=== PATIENT | female | born 1955 | race Caucasian/White ===

== ENCOUNTER → 2020-10-07 09:09 | Outpatient (BNVA) | payer MEDICARE, MEDICAID, SELFPAY | PROVIDERS: PCP Internal Medicine; Visit Provider Surgery | DX: E66.09 Other obesity due to excess calories (principal); Z68.35 Body mass index [BMI] 35.0-35.9, adult; K91.2 Postsurgical malabsorption, not elsewhere classified; Z98.84 Bariatric surgery status; Z90.3 Acquired absence of stomach [part of] | CPT/HCPCS: 99212 ==

== ENCOUNTER → 2020-10-18 08:18 | Outpatient (BNVA) | payer MEDICARE, MEDICAID, SELFPAY | PROVIDERS: PCP Internal Medicine; Visit Provider Dietitian, Registered | DX: Z76.89 Persons encountering health services in other specified circumstances (principal) ==

== ENCOUNTER 2020-10-20 11:05 | Outpatient (REF) | payer MEDICARE, MEDICAID, SELFPAY ==
[2020-10-20 11:59] LABS: MANUAL DIFF FLAG NO
[2020-10-20 12:07] LABS: Basophils Percent Auto 0.4 % (0-2); Eosinophils Absolute Auto 0.1 X10*3/uL (0.0-0.4); Eosinophils Percent Auto 2.5 % (0-4); Hematocrit 45.5 % (37-47); Hemoglobin 14.8 g/dl (12.0-16.0); Imm Gran Abs Auto 0.02 X10*3/uL (0.00-0.03); Imm Gran Pct Auto 0.4 % (0.0-0.4); Lymphocytes Absolute Auto 1.3 X10*3/uL (1.2-4.9); Lymphocytes Percent Auto 22.4 % (20-40); Mean Corpuscular HGB Conc 32.5 g/dl (31.0-35.0); Mean Corpuscular Hemoglobin 31.4 pg (27.0-33.0); Mean Corpuscular Volume 96.4 fL (80-98); Mean Platelet Volume 9.6 fL (9.4-12.3); Monocytes Absolute Auto 0.4 X10*3/uL (0.1-1.2); Monocytes Percent Auto 7.7 % (2-11); Neutrophils Absolute Auto 3.7 X10*3/uL (2.0-8.3); Neutrophils Percent Auto 66.6 % (45-73); Platelet Count 230 X10*3/uL (160-400); Red Blood Count 4.72 X10*6/uL (4.20-5.50); Red Cell Distribution Width 13.4 % (11.0-16.0); White Blood Count 5.6 X10*3/uL (4.8-10.8)
[2020-10-20 12:40] LABS: Alanine Aminotransferase 22 U/L (0-31); Albumin Level 4.3 g/dL (3.5-5.0); Alkaline Phosphatase 71 U/L (39-117); Anion Gap 13 (12-20); Aspartate Amino Transferase 19 U/L (5-31); Bilirubin Total 0.6 mg/dL (0.0-1.0); Blood Urea Nitrogen 14 mg/dL (9-16); C Reactive Protein 0.31 mg/dL (< or = 0.50); Calcium 9.6 mg/dL (8.4-10.2); Carbon Dioxide 29 mmol/L (22-29); Chloride 108 mmol/L (96-108); Cholesterol 234 mg/dL; Estimated Glomerular Filt Rate > 60; Glucose Fasting 104 mg/dL (60-99); HDL Cholesterol 54 mg/dL; Iron 130 mcg/dL (30-160); LDL Cholesterol Calculated 155 mg/dl; Percent Iron Saturation 47 % (15-50); Potassium 4.1 mmol/l (3.3-5.1); Sodium 146 mmol/L (135-145); Total Iron Binding Capacity 279 mcg/dL (228-428); Total Protein 6.8 g/dL (6.5-8.0); Triglycerides 126 mg/dL; Unsaturated Iron Binding 149 ug/dL
[2020-10-20 13:01] LABS: Vitamin D 25-OH Total 32.7 ng/mL (>30)
[2020-10-20 13:22] LABS: Vitamin B12 1035 pg/mL (200-900)
[2020-10-23 07:12] LABS: Zinc 76 mcg/dL (60-130)
[2020-10-24 10:23] LABS: Vitamin B1 13 nmol/L (8-30)
[2020-10-26 18:12] LABS: Vitamin A 72 mcg/dL (38-98)
== END 2020-10-20 11:06 | disposition home or self-care (01) ==
LOC: HO.LAB 11:05
PROVIDERS: PCP Internal Medicine; Visit Provider Surgery
DX: Z01.818 Encounter for other preprocedural examination (principal); K91.2 Postsurgical malabsorption, not elsewhere classified; Z90.3 Acquired absence of stomach [part of]
CPT/HCPCS: 36415; 80053; 80061; 82306; 82607; 83540; 84425; 84443; 84590; 84630; 85025; 86140

== ENCOUNTER → 2020-11-17 08:11 | Outpatient (BNVA) | payer MEDICARE, MEDICAID, SELFPAY | PROVIDERS: PCP Internal Medicine; Visit Provider Physician Assistant | DX: K58.9 Irritable bowel syndrome, unspecified (principal); Z98.84 Bariatric surgery status | CPT/HCPCS: Q3014 ==

== ENCOUNTER → 2020-12-09 08:14 | Outpatient (BNVA) | payer MEDICARE, MEDICAID, SELFPAY | PROVIDERS: PCP Internal Medicine; Visit Provider Dietitian, Registered ==

== ENCOUNTER → 2020-12-31 08:12 | Outpatient (BNVA) | payer MEDICARE, MEDICAID, SELFPAY | PROVIDERS: PCP Internal Medicine; Visit Provider Physician Assistant | DX: E66.09 Other obesity due to excess calories (principal); Z68.35 Body mass index [BMI] 35.0-35.9, adult; Z98.84 Bariatric surgery status | CPT/HCPCS: Q3014 ==

== ENCOUNTER 2021-05-04 06:12 | Day surgery (SDC) | payer MEDICARE, MEDICAID, SELFPAY ==
--- NOTE | 2021-05-03 09:05 | HO.ANESPROP2 ---
Documented by User: Claudia Benites 05/03/21 09:07 HPI - Anesthesia Eval Consult details Narrative: 65yo F for Upper Endoscopy s/p gastric sleeve 2016 [facility] Active Problems Active Problems: All Active Problems (Updated 04/29/21 @ 11:52 by Gladis Garcia PA-C) Recent unexplained weight loss (Acute) Nausea & vomiting (Acute) S/P laparoscopic sleeve gastrectomy (Acute) IBS (irritable bowel syndrome) (Acute) Body mass index (BMI) of 35.0 to 35.9 in adult (Acute) Intestinal malabsorption following gastrectomy (Acute) Obesity (Acute) Past Medical History Medical History Anxiety Asthma Breast cancer History of kidney stones Hypercholesterolemia Hypertension Nausea & vomiting Obesity Recent unexplained weight loss Family History Family History Father Heart problem Mass Mother Breast cancer Heart problem Hypertension Depressed Sister No problems noted. Sister No problems noted. Brother Colon cancer Son Colitis ADHD Surgical History Surgical History History of left mastectomy History of repair of hiatal hernia History of right mastectomy History of total hysterectomy with bilateral salpingo-oophorectomy (BSO) S/P laparoscopic sleeve gastrectomy Social History Social History Alcohol intake: never Patient Tobacco Use Status: Never used Tobacco Use of substances other than those prescribed or required for medical reasons: Yes Substance Use Type: Marijuana Substance Use Frequency: Daily Are you DNR?: No Advance Directives: No Advance Directives Information Provided: Yes Meds Allergies Allergy/AdvReac Type Severity Reaction Status Date / Time naproxen [From ALEVE] Allergy Unknown UNK Verified 10/07/20 09:43 sulfamethoxazole Allergy Unknown UNK Verified 10/07/20 09:43 [From BACTRIM] trimethoprim [From BACTRIM] Allergy Unknown UNK Verified 10/07/20 09:43 aleve Allergy Unknown anaphylaxis Uncoded 10/07/20 09:43 bactrim Allergy Unknown escobar-benedict Uncoded 10/07/20 09:43 nsons Home Medications Medication Instructions Recorded Confirmed Last Taken Type albuterol sulfate 90 mcg/actuation INHALATION 10/07/20 12/31/20 Unknown History aerosol inhaler ammonium lactate 12 % topical cream 1 appl TOPICAL BID 10/07/20 12/31/20 Unknown History atorvastatin 40 mg tablet 40 mg PO DAILY 10/07/20 12/31/20 Unknown History cyanocobalamin (vitamin B-12) 1,000 mcg SUBLINGUAL DAILY 10/07/20 12/31/20 Unknown History 1,000 mcg sublingual tablet fluticasone propionate 50 INTRANASAL 10/07/20 12/31/20 Unknown History mcg/actuation nasal spray,suspension gabapentin 100 mg capsule 100 mg PO TID 10/07/20 12/31/20 Unknown History hydrochlorothiazide 25 mg tablet 25 mg PO DAILY 10/07/20 12/31/20 Unknown History lisinopril 40 mg tablet 40 mg PO DAILY 10/07/20 12/31/20 Unknown History montelukast 10 mg tablet 10 mg PO DAILY 10/07/20 12/31/20 Unknown History trazodone 50 mg tablet 50 mg PO BEDTIME 10/07/20 12/31/20 Unknown History venlafaxine 75 mg capsule,extended 75 mg PO DAILY 10/07/20 12/31/20 Unknown History release 24 hr calcium carbonate-vitamin D3 600 cap PO 11/17/20 12/31/20 Unknown History mg calcium-200 unit capsule multivitamin with minerals-folic tab PO 11/17/20 12/31/20 Unknown History acid 200 mcg chewable tablet Exam Exam Date and Time: May 03, 2021 0905 Assessment and Plan Assessment Anesthesia Assessment: Chart Reviewed Documented by User: Dinesh Owesn 05/04/21 07:19 [facility] Past Medical History Medical History Anxiety Asthma Breast cancer History of kidney stones Hypercholesterolemia Hypertension Nausea & vomiting Obesity Recent unexplained weight loss Family History Family History Father Heart problem Mass Mother Breast cancer Heart problem Hypertension Depressed Sister No problems noted. Sister No problems noted. Brother Colon cancer Son Colitis ADHD Surgical History Surgical History History of left mastectomy History of repair of hiatal hernia History of right mastectomy History of total hysterectomy with bilateral salpingo-oophorectomy (BSO) S/P laparoscopic sleeve gastrectomy Social History Social History Alcohol intake: never Patient Tobacco Use Status: Never used Tobacco Use of substances other than those prescribed or required for medical reasons: Yes Substance Use Type: Marijuana Substance Use Frequency: Daily Are you DNR?: No Advance Directives: No Advance Directives Information Provided: Yes Meds Allergies Allergy/AdvReac Type Severity Reaction Status Date / Time naproxen [From ALEVE] Allergy Unknown UNK Verified 10/07/20 09:43 sulfamethoxazole Allergy Unknown UNK Verified 10/07/20 09:43 [From BACTRIM] trimethoprim [From BACTRIM] Allergy Unknown UNK Verified 10/07/20 09:43 aleve Allergy Unknown anaphylaxis Uncoded 10/07/20 09:43 bactrim Allergy Unknown escobar-benedict Uncoded 10/07/20 09:43 nsons Home Medications Medication Instructions Recorded Confirmed Last Taken Type albuterol sulfate 90 mcg/actuation INHALATION 10/07/20 12/31/20 Unknown History aerosol inhaler ammonium lactate 12 % topical cream 1 appl TOPICAL BID 10/07/20 12/31/20 Unknown History atorvastatin 40 mg tablet 40 mg PO DAILY 10/07/20 12/31/20 Unknown History cyanocobalamin (vitamin B-12) 1,000 mcg SUBLINGUAL DAILY 10/07/20 12/31/20 Unknown History 1,000 mcg sublingual tablet fluticasone propionate 50 INTRANASAL 10/07/20 12/31/20 Unknown History mcg/actuation nasal spray,suspension gabapentin 100 mg capsule 100 mg PO TID 10/07/20 12/31/20 Unknown History hydrochlorothiazide 25 mg tablet 25 mg PO DAILY 10/07/20 12/31/20 Unknown History lisinopril 40 mg tablet 40 mg PO DAILY 10/07/20 12/31/20 Unknown History montelukast 10 mg tablet 10 mg PO DAILY 10/07/20 12/31/20 Unknown History trazodone 50 mg tablet 50 mg PO BEDTIME 10/07/20 12/31/20 Unknown History venlafaxine 75 mg capsule,extended 75 mg PO DAILY 10/07/20 12/31/20 Unknown History release 24 hr calcium carbonate-vitamin D3 600 cap PO 11/17/20 12/31/20 Unknown History mg calcium-200 unit capsule multivitamin with minerals-folic tab PO 11/17/20 12/31/20 Unknown History acid 200 mcg chewable tablet Exam Airway Mallampati Class: III TM Dist: >3cm Neck ROM: Full Loose/Missing/Broken Teeth: No Heart: [id number] Lungs: cta b/l Assessment and Plan Assessment Anesthesia Assessment: Anesthesia Plan Discussed, PAT Visit and Chart Reviewed Final Anesthetic Review NPO: Yes ASA Class: III Final Preanesthetic Review: No Changes in Pt Med Stat, Meds/Allgs Chart Reviewed, Consent Obtained/Reviewed and Anes Risks/Benef Reviewed Patient Risk: Intermediate Procedure Risk: Low Assessment/Block/Sedation in SS: Assess/Block/Sedation-SS Anesthetic Plan Anesthetic Plan: MAC: and Agree w/ Assess. and Plan Disposition: Standard PACU
--- NOTE | 2021-05-03 15:53 | MHC.SHP ---
Pre-Procedural Eval Section A Date of Service: 05/03/21 Section B Chief Complaint: nausea with vomiting Allergies: Allergies Allergy/AdvReac Type Severity Reaction Status Date / Time naproxen [From ALEVE] Allergy Unknown UNK Verified 10/07/20 09:43 sulfamethoxazole Allergy Unknown UNK Verified 10/07/20 09:43 [From BACTRIM] trimethoprim [From BACTRIM] Allergy Unknown UNK Verified 10/07/20 09:43 aleve Allergy Unknown anaphylaxis Uncoded 10/07/20 09:43 bactrim Allergy Unknown escobar-benedict Uncoded 10/07/20 09:43 nsons Plan I have reviewed the history and physical and performed a pertinent physical examination on my patient. No changes have occurred unless specified. Patient is several years out from laparoscopic sleeve gastrectomy for weight management. Recently patient has had unexplained weight loss and difficulty tolerating food and has had nausea and vomiting which is new. Patient is currently being worked up by primary care doctor for other etiologies. I will perform an upper endoscopy to evaluate for mechanical issues causing the patient's nausea and vomiting weight loss.
[2021-05-04 06:59] VITALS: BP 139/69; PULSE 71; RESP 16; TEMP 36.8; O2SAT 96; BMI 34.4
[2021-05-04 07:08] LABS: COVID-19 Test Negative (Negative)
[2021-05-04] MEDS: Lactated Ringers 1,000 ML 100 ML IVCONT (07:10)
[2021-05-04 08:16] VITALS: BP 133/73; PULSE 80; RESP 18; TEMP 36.4; O2SAT 96
[2021-05-04 08:31] VITALS: BP 130/63; PULSE 72; RESP 18; O2SAT 100
--- NOTE | 2021-05-04 08:48 | P.BOP_ITS ---
Brief Operative Note Date of Service: 05/04/21 Pre-op diagnosis: Vomiting status post sleeve gastrectomy many years ago Post-op diagnosis: other (2 cm sliding hiatal hernia and antral gastritis) Procedure: Esophagogastroduodenoscopy and antral biopsy x2 Implants: None Surgeon: Constanza Galvan MD Anesthesia: MAC Was an Director Of Strategic Initiatives used for this Procedure?: No Estimated blood loss (mL): 0 Pathology: other (Antral biopsy x2) Condition: stable Disposition: PACU
--- NOTE | 2021-05-04 09:48 | OP_ITS ---
SURGEON: Constanza Galvan MD PREOPERATIVE DIAGNOSIS: POSTOPERATIVE DIAGNOSIS: PROCEDURE PERFORMED: Esophagogastroduodenoscopy and antral biopsy x2. ESTIMATED BLOOD LOSS: COMPLICATIONS: None. ANESTHESIA: Total intravenous anesthesia with propofol administered by the nurse hand almond blancher. ASSISTANTS: None. SPECIMENS: PRE-PROCEDURE DIAGNOSES: Nausea, vomiting, unexplained weight loss, status post gastric sleeve many years ago. POSTPROCEDURE DIAGNOSES: 2 cm sliding hiatal hernia and antral gastritis. CONDITION: Postprocedure, good. DESCRIPTION OF PROCEDURE: The patient was brought into the operating room on a stretcher and placed in the left lateral decubitus position. A safety time-out was performed. A bite block was placed between the teeth. Total intravenous anesthesia was administered using propofol by the nurse hand almond blancher. Once the patient was adequately sedated, the gastroscope was placed into posterior oropharynx, passed down the esophagus, evaluating esophageal mucosa which was normal. The Z-line was located at 39 cm from incisors. There was a 2 cm sliding hiatal hernia with a hiatus located at 41 cm from the incisors. The gastric mucosa that was visualized was normal. The gastric pouch was normal in size for its age. There was no evidence of gastric stenosis or torsion or mucosal lesions. The gastroscope was easily passed to the pre-pyloric region. There was patchy erythema and granularity of the antrum, which was biopsied x2 and sent for pathology and Helicobacter pylori. The gastroscope was passed through the pylorus into the duodenum, down to the 3rd portion of the duodenum, all of which was normal. The gastroscope was retracted back in the stomach. Stomach was desufflated and the gastroscope was removed without difficulty. The patient tolerated the procedure well and was sent to the recovery room in stable condition. FINDINGS: A sliding hiatal hernia that was 2 cm in length with the GE junction located at 39 cm from the incisors and the hiatus located at 41 cm from the incisors. There was no evidence of gastric torsion, stenosis, mucosal lesions. There was some patchy erythema and granularity of the antrum which was biopsied. Constanza Galvan MD UM/MODL / [id number] MTD
== END 2021-05-04 09:26 | disposition home or self-care (01) ==
PROVIDERS: PCP Internal Medicine; Visit Provider Surgery
PROC: 0DJ08ZZ Inspection of Upper Intestinal Tract, Via Natural or Artificial Opening Endoscopic (ICD-10-PCS; CPT 43235; principal; 2021-05-04 07:30)
DX: K29.50 Unspecified chronic gastritis without bleeding (principal); K44.9 Diaphragmatic hernia without obstruction or gangrene; K91.2 Postsurgical malabsorption, not elsewhere classified; K58.9 Irritable bowel syndrome, unspecified; E66.9 Obesity, unspecified; Z68.35 Body mass index [BMI] 35.0-35.9, adult; J45.909 Unspecified asthma, uncomplicated; Z98.84 Bariatric surgery status; Z90.3 Acquired absence of stomach [part of]; Z85.3 Personal history of malignant neoplasm of breast; Z79.51 Long term (current) use of inhaled steroids; Z79.899 Other long term (current) drug therapy; Z88.2 Allergy status to sulfonamides; Z88.8 Allergy status to other drugs, medicaments and biological substances; F12.90 Cannabis use, unspecified, uncomplicated; Z20.822 Contact with and (suspected) exposure to COVID-19
CPT/HCPCS: 43239; 36415; 87635; 88305; 88342; J2250

== ENCOUNTER → 2021-07-07 12:48 | Outpatient (BNVA) | payer MEDICARE, MEDICAID, SELFPAY | PROVIDERS: PCP Internal Medicine; Visit Provider Surgery | DX: E66.09 Other obesity due to excess calories (principal); Z98.84 Bariatric surgery status; Z68.34 Body mass index [BMI] 34.0-34.9, adult | CPT/HCPCS: 99212 ==

== ENCOUNTER 2024-05-08 08:32 | Outpatient (AMB) | payer OTHER, MEDICAID, SELFPAY ==
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
[2024-05-08 08:43] VITALS: BP 118/70; PULSE 62; O2SAT 96; BMI 37.6
== END 2024-05-08 09:56 | disposition home or self-care (01) ==
PROVIDERS: PCP Internal Medicine; Visit Provider Nurse Practitioner Family
DX: R41.3 Other amnesia (principal); R41.89 Other symptoms and signs involving cognitive functions and awareness; G47.33 Obstructive sleep apnea (adult) (pediatric)
CPT/HCPCS: 99204

== ENCOUNTER → 2024-05-08 08:32 | Outpatient (BNVA) | payer OTHER, MEDICAID, SELFPAY | PROVIDERS: PCP Internal Medicine; Visit Provider Nurse Practitioner Family ==

== ENCOUNTER 2024-05-13 14:44 | Outpatient (REF) | payer OTHER, MEDICAID, SELFPAY ==
[2024-05-13 18:15] LABS: Rheumatoid Factor < 13.0 IU/mL (<15.0)
[2024-05-13 18:36] LABS: TSH reflex Free T4 1.39 uIU/mL (0.32-4.0)
[2024-05-13 18:38] LABS: Erythrocyte Sedimentation Rate 11 MM/HR (0-20)
[2024-05-13 18:46] LABS: Folate 9.1 ng/mL (> or = 4.0); Vitamin B12 848 pg/mL (200-900)
[2024-05-14 04:28] LABS: Syphilis Screen Nonreactive (Nonreactive)
[2024-05-14 04:36] LABS: HIV AB/AG Nonreactive (Nonreactive); HIV Num 1 0.05 S/CO (0.00-0.99)
[2024-05-14 05:20] LABS: Estimated Average Glucose 126 mg/dL
[2024-05-15 12:53] LABS: CRP High Sensitivity 1.6 mg/L
[2024-05-18 07:59] LABS: Anti Nuclear Antibody Screen NEGATIVE (NEGATIVE)
[2024-05-18 16:53] LABS: Methylmalonic Acid 145 nmol/L (69-390)
[2024-05-19 13:49] LABS: Vitamin D 25-OH, D2 5 ng/mL; Vitamin D 25-OH, D3 34 ng/mL; Vitamin D 25-OH, Total 39 ng/mL (30-100)
== END 2024-05-13 14:45 | disposition home or self-care (01) ==
LOC: HO.HKASLDS 14:44
PROVIDERS: Visit Provider Nurse Practitioner Family
DX: E55.9 Vitamin D deficiency, unspecified (principal); R41.3 Other amnesia; Z98.84 Bariatric surgery status; E66.09 Other obesity due to excess calories; Z68.35 Body mass index [BMI] 35.0-35.9, adult; Z13.1 Encounter for screening for diabetes mellitus
CPT/HCPCS: 36415; 82306; 82607; 82746; 83036; 83921; 84443; 85652; 86038; 86141; 86431; 86780; 87389

== ENCOUNTER 2024-05-13 15:14 | Outpatient (REF) | payer OTHER, MEDICAID, SELFPAY ==
[2024-05-15 19:03] LABS: Homocysteine 9.2 umol/L (<10.4)
== END 2024-05-13 15:15 | disposition home or self-care (01) ==
LOC: HO.LAB 15:14
PROVIDERS: PCP Internal Medicine; Visit Provider Nurse Practitioner Family
DX: E55.9 Vitamin D deficiency, unspecified (principal); R41.3 Other amnesia; Z98.84 Bariatric surgery status; E66.09 Other obesity due to excess calories; Z68.35 Body mass index [BMI] 35.0-35.9, adult
CPT/HCPCS: 36415; 83090

== ENCOUNTER 2024-05-28 12:03 | Outpatient (RCR) | payer OTHER, MEDICAID, SELFPAY ==
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
== END 2024-07-02 12:41 | disposition home or self-care (01) ==
LOC: HO.SH 12:03
PROVIDERS: PCP Internal Medicine; Visit Provider Nurse Practitioner Family
DX: R41.3 Other amnesia (principal); R41.89 Other symptoms and signs involving cognitive functions and awareness
CPT/HCPCS: 96125

== ENCOUNTER 2024-12-23 09:14 | Outpatient (AMB) | payer MEDICAID, SELFPAY ==
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
[2024-12-23 09:28] VITALS: BP 100/70; PULSE 86; O2SAT 96; BMI 38.8
--- OUTSIDE RECORDS SUMMARY | 2024-12-23 10:20 | XMS_ITS | Encounter Summary ---
Author Organization [place] [address] Care Team Providers Care Customer Marketing Intern Name Role Phone Lemuel Aquino MD Primary Care Provider [phone] Encounter Details Date Type Department Care Team (Late st Contact Info) Description 07/21/2024 9:58 AM EDT Hospital Encounter TH HISTORIC ENCOUNTERS EASTERN CONVERSION ONLY Cici Cardenas, DO [address] [place] [address] Social History Tobacco Use Types Packs/Day Years Used Date Smoking Tobacco: Former Cigarettes 0.3 6.4 0 1974 - 10/15/1980 Passive Smoke Exposure: Past Smokeless Tobacco: Never Alcohol Use Standard Drinks/Week Comments No 0 (1 standard drink = 0.6 oz pur e alcohol) Comments No Sex and Gender Information Value Date Recorded Sex Assigned at Not on file Legal Sex Female 8:39 PM EST Gender Identity Not on file Sexual Orientation Not on file documented as of this encounter Last Filed Vital Signs Vital Sign Reading Time Taken Comments Blood Pressure 133/58 07/21/2024 10:27 AM EDT Sitting Left arm Pulse 65 07/21/2024 10:27 AM EDT Temperature - - Respiratory Rate - - Oxygen Saturation - - Inhaled Oxygen Concentration - - Weight 102 kg (224 lb) 07/21/2024 10:27 AM EDT Height 165.1 cm (5' 5 ) 07/21/2024 10:2 7 AM EDT Body Mass Index 37.28 07/21/2024 10:27 AM EDT documented in this encounter Progress Notes * Cici Cardenas MD - 07/21/2024 10:15 AM EDT Images from the original note were not included. Progress Notes by Cici Cardenas DO at 07/21/2024 10:15 AM Author: Cici Cardenas DO Service: -- Author Type: Physician Filed: 07/30/2024 10:09 AM Encounter Date: 07/21/2024 Status: Addendum Tub Operator: Cici Cardenas DO (Physician) Related Notes: Original Note by Cici Cardenas DO (Physician) filed at 07/30/2024 10:09 AM Hematology/Oncology Follow Up Note Date 07/21/2024 Subjective Interval history She presents today for follow up. She reports having ongoing excessive sweating. Also feels she still bruising easily. She had platelet aggregation study done. Notes multiple systemic symptoms, chronic, for which she says also her PCP can not figure out what is causing. Some of it she does attribute to IBS. Hematologic history She was seen by Dr Anthony in 2019 and 2020 for easy bruising and and full work up done. She was negative for von willebrand disease, had normal platelet aggregation study, and normal factor levels. Shehad negative lupus anti coagulant. It was felt she had easy bruising of no clinical significance. She reports that she has intermittent redness and lesions on her abdomen. Recently was seen by PCP in February and diagnosed with cellulitis and given a course of cephalexin. Denies any nose bleed, gum bleeding, hematuria or melena. States when it is hot out she sweats a lot, but never at night. She has history of gastric sleeve surgery. She does take oral multi vitamin along with oral B 12 and vitamin D. She states she has never had an significant bleeding after multiple surgeries including rotator cuff repair, hysterectomy, gastric sleeve and cholecystectomy. She had tooth extraction three years agoand had siginificant ecchymoses extending up her entire right face to her eye. She did have reconstructive surgery on right breast which was slow to heal. She has never required blood transfusion or iron infusion. 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 She opted against hormonal therapy, she did not need chemotherapy or radiation. Past Medical History Past Medical History: Diagnosis Date ? Anxiety ? Asthma ? Breast cancer (HCC) ? Chronic headaches ? Depression ? Esophageal reflux ? Fibromyalgia ? GERD (gastroesophageal reflux disease) ? Hiatal hernia ? HTN (hypertension) ? IBS (irritable bowel syndrome) ? Nonallopathic lesion of costovertebral region ? Osteoarthritis ? PTSD (post-traumatic stress disorder) ? Sleep apnea ? Thoracic back sprain ? Thoracic segment dysfunction ? Vitamin D deficiency Past Surgical History Past Surgical History: Procedure Laterality Date ? BARIATRIC SURGERY ? CHOLECYSTECTOMY ? HYSTERECTOMY ? MASTECTOMY Bilateral Family History Family History Problem Relation Age of Onset ? Cancer Mother ? 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 albuterol (PROVENTIL HFA;VENTOLIN HFA) 108 (90 Base) MCG/ACT inhaler, Inhale 2 puffs into the lungs every 4 (four) hours as needed for wheezing., Disp: , Rfl: ? ammonium lactate (LAC-HYDRIN) 12 % cream, Apply topically as needed for dry skin., Disp: , Rfl: ? atorvastatin (LIPITOR) tablet 40 mg, Take 1 tablet (40 mg total) by mouth daily., Disp: , Rfl: ? budesonide-formoterol (SYMBICORT) 160-4.5 MCG/ACT inhaler, Inhale 2 inhalations into the lungs 2 (two) times a day., Disp: , Rfl: ? Calcium Carbonate Antacid (CALCIUM ANTACID ULTRA MAX ST) 1000 MG tablet, Chew 1,000 mg by mouth daily., Disp: , Rfl: ? fluticasone (FLONASE) 50 MCG/ACT nasal spray, spray/apply 1 spray in each nostril daily., Disp: ,Rfl: ? hydroCHLOROthiazide (HYDRODIURIL) tablet 25 mg, Take 1 tablet (25 mg total) by mouth daily., Disp: , Rfl: ? lisinopril (PRINIVIL,ZESTRIL) tablet 40 mg, Take 1 tablet (40 mg total) by mouth daily., Disp: , Rfl: ? meclizine (ANTIVERT) 25 MG tablet, Take 1 tablet (25 mg total) by mouth 3 (three) times a day as needed., Disp: , Rfl: ? montelukast (SINGULAIR) 10 MG tablet, Take 1 tablet (10 mg total) by mouth every night at bedtime., Disp: , Rfl: ? omeprazole (PriLOSEC) 10 MG capsule, Take 1 capsule (10 mg total) by mouth daily., Disp: , Rfl: ? traZODone (DESYREL) 100 MG tablet, Take 1 tablet (100 mg total) by mouth every night at bedtime.,Disp: , Rfl: ? venlafaxine (EFFEXOR-XR) 75 MG 24 hr capsule, Take 1 capsule (75 mg total) by mouth daily., Disp:, Rfl: ? acetaminophen (TYLENOL) 650 MG CR tablet, Take 650 mg by mouth every 8 (eight) hours as needed for pain. (Patient not taking: Reported on 07/21/2024), Disp: , Rfl: ? Cyanocobalamin 1000 MCG SUBL, Place 1 tablet under the tongue daily. (Patient not taking: Reported on 07/21/2024), Disp: , Rfl: ? gabapentin (NEURONTIN) 100 MG capsule, Take 100 mg by mouth daily. (Patient not taking: Reported on 07/21/2024), Disp: , Rfl: ? Multiple Vitamins-Minerals (MULTI ADULT GUMMIES PO), Take by mouth daily. (Patient not taking: Reported on 07/21/2024), Disp: , Rfl: ? vitamin D3 (VITAMIN D3) 25 MCG (1000 UT) tablet, Take 1,000 Units by mouth daily. (Patient not taking: Reported on 07/21/2024), Disp: , Rfl: Allergies Allergies Allergen Reactions ? Aleve [Naproxen] ? Edarbyclor [Azilsartan-Chlorthalidone] ? Trimethoprim-Smz Ds [Sulfamethoxazole-Trimethoprim] Physical Exam Vitals: 07/21/24 1027 BP: 133/58 BP Location: Left arm Pulse: 65 Temp: 98.2 ??F (36.8 ??C) TempSrc: Temporal SpO2: 96% Weight: 101.6 kg (224 lb) Height: 5' 5 (1.651 m) Performance Status: General: well appearing, in no acute distress HENT: no scleral icterus Neuro: alert and oriented, normal speech LABS Assessment & Plan 69 year old female presents for follow up of easy bruising. The patient had prior full work up withmild elevation in PTT but no actual bleeding disorder present. At that time in 2019 lupus anti coagulant was negative. She does now have positive lupus anti coagulant. Vitamin b12 and iron deficiency ruled out. Von willebrand's disease panel is normal. RONNIE , ANCA and RF screen is negative pointing against an autoimmune issue or rheumatoid arthritis. CT abdomen pelvis performed was normal. Platelet aggregation studyalso normal. Explained to patient that usually LA positive associated with thrombosis and not bleeding . Bruising Refer to [facility] for second opinion consultation given our extensive work up is negative She may have underlying connective tissue disorder or other systemic cause of bruising which is nota hematologic disorder. Follow up with dermatology also pending for evaluation of her rash which I indicated to her is not bruising. Positive lupus anticoagulant No indication for anti coagulation at this time However, needs to be aware of her thrombosis risk in situations such as post operative and travel Sign: Jordyn Cardenas DO Hematology/Oncology [facility] [phone] documented in this encounter Plan of Treatment Upcoming Encounters Date Type Department Care Team (Late st Contact Info) Description 12/26/2024 2:30 PM EDT Office Visit Internal Medicine - [facility] [address] [place] [address] Doretha Boucher, BEAU [address] [place] [address] 05/15/2025 11:45 AM EDT Office Visit Pulmonolgy - [place] [address] [phone] Debbie Guy MD [address] [address] 10/27/2025 10:30 AM EST Office Visit [facility] Hematology Oncology [address] [place] [phone] Ciic Cardenas DO [address] [place] [address] documented as of this encounter Procedures Procedure Name Priority Date/Time Associated Diagnosis Comments ..MISCELLANEOUS REFERENCE LAB TEST 07/21/2024 ..MISCELLANEOUS REFERENCE LAB TEST 07/21/2024 documented in this encounter Results * Miscellaneous reference lab test (07/21/2024) us Provider Onbase MD LAB BLOOD ORDERABLES Final Re sult * Miscellaneous reference lab test (07/21/2024) us Provider Onbase MD LAB BLOOD ORDERABLES Final Re sult documented in this encounter Visit Diagnoses Not on filedocumented in this encounter Care Teams Customer Marketing Intern Relationship Specialty Start Date End Date Lemuel Aquino MD [address] [place] [address] PCP - General Internal Medicine 06/29/15 documented as of this encounter
--- OUTSIDE RECORDS SUMMARY | 2024-12-23 10:20 | XMS_ITS | Encounter Summary ---
Author Organization [facility] [place] [address] Care Team Providers Care Product Development Specialist Name Role Phone Lemuel Aquino MD Primary Care Provider [phone] Encounter Details Date Type Department Care Team (Late st Contact Info) Description 11/26/2024 Telephone Breast [facility] [address] [place] [phone] Christy Kumar [place] Social History Tobacco Use Types Packs/Day Years Used Date Smoking Tobacco: Former Cigarettes 0.3 6.4 0 1974 - 10/15/1980 Smokeless Tobacco: Never Alcohol Use Standard Drinks/Week Comments No 0 (1 standard drink = 0.6 oz pur e alcohol) Comments No Sex and Gender Information Value Date Recorded Sex Assigned at Not on file Legal Sex Female 8:39 PM EST Gender Identity Not on file Sexual Orientation Not on file documented as of this encounter Progress Notes * Christy Kumar MA - 11/27/2024 12:35 PM EST Left VM to schedule appt. documented in this encounter Plan of Treatment Upcoming Encounters Date Type Department Care Team (Late st Contact Info) Description 12/26/2024 2:30 PM EDT [facility] [address] [place] [address] Doretha Boucher, OFFICE MAIL CLERK [address] [place] [address] 05/15/2025 11:45 AM EDT Office Visit Pulmonolgy - [place] [address] [phone] Debbie Guy MD [address] [address] 10/27/2025 10:30 AM EST Office Visit [facility] Hematology Oncology [address] [place] [phone] Cici Cardenas, [address] [place] [address] documented as of this encounter Visit Diagnoses Not on filedocumented in this encounter Care Teams Product Development Specialist Relationship Specialty Start Date End Date Lemuel Aquino MD [address] [place] [address] PCP - General Internal Medicine 06/29/15 documented as of this encounter
--- OUTSIDE RECORDS SUMMARY | 2024-12-23 10:20 | XMS_ITS | Data Portability ---
Author Organization [place] - [facility], Allergy Address [address] [address] Care Team Providers Care Door To Door Salesperson Name Role Phone JASBIR GORMAN Primary Care Provider [phone] Assessment Encounter Date Assessment Date Assessment LastModified by Organization Details LastModified Time 06/19/2024 06/19/2024 Patient describes blocked sensation of her ears with difficulty equalizing pressure on the descent of her most recent air flights. A nasal endoscopy was performed demonstrating normal nasopharynx and eustachian tube as well as normal sinuses with no evidence of infection. Encouraged her to continue symptomatic management with nasal hygiene using nasal saline and she may continue to use the triamcinolone as prescribed by her primary care as long as she continues to use it on a regular schedule and not ad puma. She has no evidence of cerumen. I encouraged her to stop use of Q-tips as they may damage the delicate skin of the ear canal dplosky Not available 06/19/2024 10:49:16 Plan of Treatment Reminders Order Date Submit Date Provider Last Modified By Organization Details Last Modified Time Details Appointments None record ed. Lab None record ed. Referral None record ed. Procedures None record ed. Surgeries None record ed. Imaging None record ed. Medication Orders None record ed. Patient TargetsNo targets recorded. Patient InstructionsNo instructions recorded. Reason for Referral None Reported. Results Created Date Observation Date Name Description Value Unit Range Abnormal Flag Note LastModifiedBy Organization Detail LastModifiedTime 06/03/2001/10/2024 imagi ng/di agnos tic resul t No observ ation record ed. [email or web address] Not Available 14:53:55 06/03/2008/15/2021 imagi ng/di agnos tic resul t No observ ation record ed. [email or web address] Not Available 14:53:56 06/03/20 24 08/15/2021 audio gram No observ ation record ed. [email or web address] Not Available 14:54:04 Result Notes None recorded. Problems Name Problem SNOMED Code Status Onset Date Resolution Date Notes Provider Name and Address Organization Details Recorded Time Abnormal auditory perceptio n 46391857 Active 2020 Other abnormal auditory perceptio ns, right ear; Note: Date Diagnosed : 08/15/2021 1:58 PM (H93.291) Not Available [facility] 4 03:21:13 Bilateral temporoma ndibular joint pain 71007358361 453141 Active 2015 Arthralgi a of bilateral temporoma ndibular joint; Note: Date Diagnosed : 6 1:32 PM (M26.623) Not Available [facility] 4 03:21:12 Dizziness and giddiness 088419168 Active 2015 Dizziness and giddiness ; Note: Date Diagnosed : 6 1:32 PM (R42) Not Available [facility] 4 03:21:13 Nasal congestio n 86429611 Active 2015 Nasal congestio n; Note: Date Diagnosed : 6 1:32 PM (R09.81) Not Available [facility] 4 03:21:12 Deviated nasal septum 181961924 Active 2023 Deviated nasal septum; Note: Date Diagnosed : 01/24/2024 10:13 AM (J34.2) Not Available [facility] 4 03:21:12 Bilateral disorder of Eustachia n tubes 89942625828 55466 Active 2023 JEANINE DALE MD [address] [place] [address], [facility] [place], [phone] , [facility] - [facility] 4 10:48:05 Problem Notes None recorded. Procedures Surgical History Date Name Laterality Status Provider Name and Address Organization Details Recorded Time 06/19/2024 NasalEndos copy_DP completed JEANINE DALE MD [address] [place] [address], [place], [address], [facility] - [facility] 06/19/2024 10:47:56 Imaging Results Imaging Date Name Status LastModified by Organiz ation Details LastModified Time 01/10/2024 imaging/diagno stic result completed Information not available 06/03/2024 14:53:55 08/15/2021 imaging/diagno stic result completed Information not available 06/03/2024 14:53:56 08/15/2021 audiogram completed Information not available 06/03/2024 14:54:04 Procedure Notes None recorded. Medical Equipment None Reported. Allergies Allergen ID Allergen Name Allergen Category Reaction Reaction Severity Criticality Documentation Date Start Date Code Code System Note Provider Name and Address Organization Details Recorded Time 23703 naproxen sodium medicatio n other Not available Not available 02/26/2024 20519 2 RxNorm React ion: unkno wn, unspe cifie d;; Not Available [facility] 4 00:48:26 51148 Bactrim medicatio n other Not available Not available 02/26/2024 28914 9 RxNorm React ion: unkno wn, unspe cifie d;; Not Available [facility] 4 00:48:39 Medications Name Sig Start Date Stop Date Status Note LastModified by Organization Details LastModified Time cyclobenza francia 10 mg tablet PLEASE SEE ATTACHED FOR DETAILED DIRECTION S active Not Available Not Available No t Available atorvastat in 40 mg tablet TAKE 1 TABLET BY MOUTH EVERY DAY active Not Available Not Available No t Available venlafaxin e ER 37.5 mg capsule,ex tended release 24 hr TAKE 1 CAPSULE BY MOUTH EVERY DAY active Not Available Not Available No t Available venlafaxin e ER 75 mg capsule,ex tended release 24 hr TAKE 1 CAPSULE BY MOUTH EVERY DAY active Not Available Not Available No t Available doxycyclin e hyclate 100 mg capsule TAKE 1 CAPSULE BY MOUTH TWICE A DAY FOR 7 DAYS active Not Available Not Available No t Available albuterol sulfate 2.5 mg/3 mL (0.083 %) solution for nebulizati on INHALE 1 VIAL VIA NEBULIZER ROUTE EVERY 6 HOURS NEEDED FOR WHEEZING, SHORTNESS OF BREATH OR COUGH active Not Available Not Available No t Available trazodone 50 mg tablet TAKE 1 TABLET BY MOUTH EVERYDAY AT BEDTIME AND 1/2 TABLET EVERY AFTERNOON active Not Available Not Available No t Available ondansetro n HCl 4 mg tablet TAKE 1 TABLET BY MOUTH EVERY 8 HOURS NEEDED FOR NAUSEA AND VOMITING active Not Available Not Available No t Available amlodipine 2.5 mg tablet TAKE 1 TABLET BY MOUTH EVERY DAY active Not Available Not Available No t Available doxycyclin e monohydrat e 100 mg tablet TAKE 1 TABLET BY MOUTH TWICE A DAY FOR 10 DAYS active Not Available Not Available No t Available lorazepam 0.5 mg tablet 2015 active Medicatio n ID: [id number] Du ration Value: 28 Brand Name: lorazepam Send Method: E-Prescri bed Subs Allowed: subs OK Specia l Instructi on: take 1 tablet by mouth once daily if needed for anxiety M edication GenericNa me: lorazepam Not Available Not Available Not Available cephalexin 500 mg capsule TAKE 1 CAPSULE BY MOUTH FOUR TIMES A DAY FOR 10 DAYS active Not Available Not Available No t Available bupropion HCl 75 mg tablet active Medicatio n ID: [id number] Br and Name: bupropion HCl Send Method: E-Prescri bed Subs Allowed: subs OK Medica tionGener icName: bupropion HCl Not Available Not Available Not Available hydrochlor othiazide 12.5 mg capsule 2015 active Medicatio n ID: [id number] Du ration Value: 30 Brand Name: hydrochlo rothiazid e Send Method: E-Prescri bed Subs Allowed: subs OK Specia l Instructi on: take 1 capsule by mouth once daily Med icationGe nericName : hydrochlo rothiazid e Not Available Not Available Not Available omeprazole 20 mg capsule,de layed release TAKE 1 CAPSULE BY MOUTH EVERY DAY active Not Available Not Available No t Available montelukas t 10 mg tablet TAKE 1 TABLET BY MOUTH EVERYDAY AT BEDTIME active Not Available Not Available No t Available hydrochlor othiazide 25 mg tablet TAKE 1 TABLET BY MOUTH EVERY DAY active Not Available Not Available No t Available gabapentin 100 mg capsule TAKE 1 CAPSULE BY MOUTH THREE TIMES A DAY active Not Available Not Available No t Available zolpidem 10 mg tablet 2015 active Medicatio n ID: [id number] Du ration Value: 30 Brand Name: zolpidem Send Method: E-Prescri bed Subs Allowed: subs OK Specia l Instructi on: take 1 tablet by mouth once daily if needed Me shanaG enericNam e: zolpidem Not Available Not Available Not Available methylpred nisolone 4 mg tablets in a dose pack TAKE 6 TABLETS ON DAY 1 DIRECTED ON PACKAGE AND DECREASE BY 1 TAB EACH DAY FOR A TOTAL OF 6 DAYS active Not Available Not Available No t Available albuterol sulfate HFA 90 mcg/actuat ion aerosol inhaler INHALE 2 PUFFS INTO THE LUNGS EVERY 6 HOURS NEEDED FOR COUGH, WHEEZING OR SHORTNESS OF BREATH. active Not Available Not Available No t Available lisinopril 40 mg tablet TAKE 1 TABLET BY MOUTH EVERY DAY active Not Available Not Available No t Available amoxicilli n 875 mg-potassi um clavulanat e 125 mg tablet TAKE 1 TABLET BY MOUTH TWICE A DAY FOR 10 DAYS active Not Available Not Available No t Available oxycodone 5 mg tablet TAKE 1 TABLET BY MOUTH EVERY 6 HOURS NEEDED FOR PAIN active Not Available Not Available No t Available Klor-Con M10 mEq tablet,ext ended release TAKE 1 TABLET BY MOUTH EVERY DAY FOR 3 DAYS active Not Available Not Available No t Available escitalopr am 5 mg tablet active Medicatio n ID: [id number] Br and Name: escitalop luna oxalate S end Method: E-Prescri bed Subs Allowed: subs OK Medica tiGian icName: escitalop luna oxalate Not Available Not Available Not Available nitrofuran toin monohydrat e/macrocry stals 100 mg capsule TAKE 1 CAPSULE BY MOUTH TWICE A DAY FOR 5 DAYS active Not Available Not Available No t Available chlorhexid ine gluconate 0.12 % mouthwash RINSE MOUTH WITH 15 MILLILITE RS TWICE A DAY AFTER BRUSHING, SWISH IN MOUTH FOR 30 SECONDS THEN SPIT active Not Available Not Available No t Available Breo Ellipta 200 mcg-25 mcg/dose powder for inhalation active Medicatio n ID: [id number] Br and Name: Breo Ellipta S end Method: E-Prescri bed Subs Allowed: subs OK Medica tionGener icName: Breo Ellipta Not Available Not Available Not Available Vitals Date Recorded Body height Body mass index (BMI) Body weight Provider Name and Address Organization Details Last Updated DateTime 06/19/2024 165.1 cm 38.3 kg/m2 041647.25 g Adrianne Boone [place] - [facility] 06/19/2024 10:28:11 Social History None recorded. Functional Status None recorded. Mental Status None recorded. Family History Nothing Reported. Medical History No medical history recorded. Gynecological HistoryNo gynecological history recorded. Obstetrics History GPAL:G 0 P 0 0 0 0 Past Encounters Encounter ID Performer Location Encounter Start Date Encounter Closed Date Diagnosis/Indication Diagnosis SNOMED-CT Code Diagnosis ICD10 Code Diagnosis Note [id number] JEANINE DALE MD [facility] [address] [place] [address] 06/19/2024 10:19:00 06/19/2024 10:49:46 Bilateral disorder of Eustachian tubes 1139973569 338275 H69.93 Health Concerns Section Related Observation LastModified by Organization Detai ls LastModified Time None Recorded Concern Status LastModified by Organization Details LastModified Time None Recorded Advance Directives Directive None Recorded Payers Encounter Date Sequence Insurance Name Policy Number Policy Solares Covered Member ID Solares Member ID Guarantor Name 06/19/2024 1 [place] Ashli Khan [id number] Ashli Khan 06/19/2024 2 [employer] (MEDICARE REPLACEMENT/A DVANTAGE - PPO) Ashli Khan [id number] Ashli Khan Notes Date Note Type Note Provider Name and Address Organization Details Recorded Time 06/19/2024 text/html ears feel blocked, R>Lhad difficulty equalizing pressure in left from recent flight previous visit 01/24/24 workup for left nasal congestion improved with lavage of left lacrimal duct by her dairy nutrition specialist JEANINE DALE MD [address] [place] [address], [phone], [place] - [facility] 06/19/2024 10:50:00 OBGyn Episode No OBEpisode recorded.
--- OUTSIDE RECORDS SUMMARY | 2024-12-23 10:20 | XMS_ITS | Clinical Summary ---
Author Organization Formerly [facility] Address [address] [place] [address] Care Team Providers Care Slagger Name Role Phone Lemuel Aquino MD Primary Care Provider [phone] Allergies Active Allergy Reactions Criticality Noted Date Comments Naproxen 09/03/2020 Azilsartan-Chlorthalidone 09/03/2020 Sulfamethoxazole-Trimethoprim 2019 Medications Medication Sig Dispensed Refills Start Date End Date Status montelukast (SINGULAIR) 10 MG tablet Take 1 tablet (10 mg total) by mouth every night at bedtime. 0 Active omeprazole (PriLOSEC) 10 MG capsule Take 1 capsule (10 mg total) by mouth daily. 0 Active ammonium lactate (LAC-HYDRIN) 12 % cream Apply topically as needed for dry skin. 0 Active atorvastatin (LIPITOR) tablet 40 mg Take 1 tablet (40 mg total) by mouth daily. 0 Active lisinopril (PRINIVIL,ZESTRIL) tablet 40 mg Take 1 tablet (40 mg total) by mouth daily. 0 Active hydroCHLOROthiazide (HYDRODIURIL) tablet 25 mg Take 1 tablet (25 mg total) by mouth daily. 0 Active albuterol (PROVENTIL HFA;VENTOLIN HFA) 108 (90 Base) MCG/ACT inhaler Inhale 2 puffs into the lungs every 4 (four) hours as needed for wheezing. 0 Active fluticasone (FLONASE) 50 MCG/ACT nasal spray spray/apply 1 spray in each nostril daily. 0 Active gabapentin (NEURONTIN) 100 MG capsule Take 100 mg by mouth daily. 0 Active Cyanocobalamin [address] 1 tablet under the tongue daily. 0 Active venlafaxine (EFFEXOR-XR) 75 MG 24 hr capsule Take 1 capsule (75 mg total) by mouth daily. 0 Active Calcium Carbonate Antacid (CALCIUM ANTACID ULTRA MAX ST) 1000 MG tablet Chew 1,000 mg by mouth daily. 0 Active traZODone (DESYREL) 100 MG tablet Take 1 tablet (100 mg total) by mouth every night at bedtime. 0 Active Multiple Vitamins-Minerals (MULTI ADULT GUMMIES PO) Take by mouth daily. 0 Acti ve meclizine (ANTIVERT) 25 MG tablet Take 1 tablet (25 mg total) by mouth 3 (three) times a day as needed. 0 Active budesonide-formotero l (SYMBICORT) 160-4.5 MCG/ACT inhaler Inhale 2 inhalations into the lungs 2 (two) times a day. 0 Active acetaminophen (TYLENOL) 650 MG CR tablet Take 650 mg by mouth every 8 (eight) hours as needed for pain. 0 Active vitamin D3 (VITAMIN D3) 25 MCG (1000 UT) tablet Take 1,000 Units by mouth daily. 0 Active Active Problems No known active problems Family History Medical History Relation Name Comments Cancer Brother Cancer Mother Relation Name Status Comments Brother Mother Social History Tobacco Use Types Packs/Day Years Used Date Smoking Tobacco: Former Cigarettes Q uit: 10/15/1980 Smokeless Tobacco: Never Tobacco Cessation:Counseling Given: Not Answered Alcohol Use Standard Drinks/Week Comments No 0 (1 standard drink = 0.6 oz pur e alcohol) Sex and Gender Information Value Date Recorded Sex Assigned at Not on file Gender Identity Not on file Sexual Orientation Not on file Job Start Date Occupation Industry Not on file Not on file Not on file Last Filed Vital Signs Vital Sign Reading Time Taken Comments Blood Pressure 133/58 07/21/2024 10:27 AM EDT Pulse 65 07/21/2024 10:27 AM EDT Temperature 36.8 ??C (98.2 ??F) 07/21/2024 10:27 AM E DT Respiratory Rate - - Oxygen Saturation 96% 07/21/2024 10:27 AM EDT Inhaled Oxygen Concentration - - Weight 101.6 kg (224 lb) 07/21/2024 10:27 AM EDT Height 165.1 cm (5' 5 ) 07/21/2024 10:27 AM EDT Body Mass Index 37.28 07/21/2024 10:27 AM EDT Plan of Treatment Health Maintenance Due Date Last Done Comments Hepatitis C Screening 1955 Depression Screening 1967 BMI Counseling 1973 Preventative Health Evaluation 1973 Colon Cancer Screening (Colonoscopy) 2000 Breast Cancer Screening (Mammogram) 2005 Shingrix-Zoster Vaccine (1 of 2) 2005 Fall Risk Assessment 2020 Osteoporosis Screening (DEXA Scan) 2020 Pneumococcal Vaccine (1 of 1 - PCV) 2020 COVID-19 Vaccine ( season) 2024 08/16/2022, 08/11/2021, 01/25/2021, Additional history exists Influenza Vaccine (#1) 2024 DTap / Tdap / Td (2 - Td or Tdap) 11/12/2027 11/12/2017 RSV Adult > 60+ Yrs or (1 - 1-dose 75+ series) 2030 Hepatitis B Vaccines Aged Out No long er eligible based on patient's age to complete this topic RSV Ped < 20 months Aged Out No longe r eligible based on patient's age to complete this topic Care Teams Slagger Relationship Specialty Start Date End Date Lemuel Aquino MD PCP - General Internal Medicine 08/11/20
--- OUTSIDE RECORDS SUMMARY | 2024-12-23 10:20 | XMS_ITS | Encounter Summary ---
Author Organization [facility] [place] [address] Care Team Providers Care Director Of Home Care Hospice Name Role Phone Lemuel Aquino MD Primary Care Provider [phone] Reason for Visit * Reason Onset Date Comments imaging request 11/26/2024 Encounter Details Date Type Department Care Team (Late st Contact Info) Description 11/26/2024 Telephone Internal Medicine - [address] [address] Lemuel Aquino MD [address] [place] [address] imaging request Social History Tobacco Use Types Packs/Day Years [...] as of this encounter Progress Notes * Sridevi Lynn MA - 11/26/2024 11:06 AM EST Pt informed of PCP message * Lemuel Aquino MD - 11/26/2024 10:57 AM EST Unfortunately needs to come from examining provider * Cuca Barajas MA - 11/26/2024 10:22 AM EST See msg below. Orders pending, sign if appropriate. SENIOR CORPORATE ACCOUNTANT deferred to PCP in yesterday's encounter. * Bárbara Wilks - 11/26/2024 9:58 AM EST Caller requesting call back from provider: Is the caller the patient? yes If caller is not the patient, what is the callers name? Callers relationship to patient? Reason for call back: Pt calling states the cancer center is requesting patient has imaging done. Pt is asking for orders for imaging of her chest, right arm and back before [facility] Caller offered to speak with the nurse for assistance: YES Response: Patient offered to speak with nurse for assistance and patient agreed. Message forwarded to nurse. documented in this encounter Plan of Treatment Upcoming Encounters Date Type Department Care Team (Late st Contact Info) Description 12/26/2024 2:30 PM EDT Office Visit [facility] [address] [place] [address] Doretha Boucher NP [address] [place] [address] 05/15/2025 11:45 AM EDT Office Visit Pulmonolgy - [place] [address] [phone] Debbie Guy MD [address] [address] 10/27/2025 10:30 AM EST Office Visit [facility] Hematology Oncology [address] [place] [phone] Cici Cardenas DO [address] [place] [address] documented as of this encounter Visit Diagnoses Diagnosis 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
--- OUTSIDE RECORDS SUMMARY | 2024-12-23 10:20 | XMS_ITS | Encounter Summary ---
Author Organization [place] [address] Care Team Providers Care Learning And Development Coordinator Name Role Phone Lemuel Aquino MD Primary Care Provider [phone] Reason for Visit * Reason Onset Date Comments Hospital Follow-up 12/18/2024 Encounter Details Date Type Department Care Team (Late st Contact Info) Description 12/18/2024 Telephone [facility] 175 [facility] [address] [place] [address] Debbie Guy MD 175 [facility] [address] [place], [place] [phone] Hospital Follow-up Social History Tobacco Use Types Packs/Day Years [...] as of this encounter Progress Notes * Jessica Garcia MA - 12/19/2024 12:04 PM EST Spoke with patient was scheduled for follow up on 12/22/24 and will address then * Jessica Garcia MA - 12/18/2024 4:51 PM EST Voicemail left for call back * Osman Deihl - 12/18/2024 12:53 PM EST [facility] ER visit- 12/18/2024 Sob, diarrhea, vomiting / DX pneumonia Cat scan came back negative for blood clot (lungs. documented in this encounter Plan of Treatment Upcoming Encounters Date Type Department Care Team (Late st Contact Info) Description 12/26/2024 2:30 PM EDT Office Visit Internal Medicine - [address] [phone] Doretha Boucher, BEAU [address] [place] [address] 05/15/2025 11:45 AM EDT Office Visit Pulmonolgy - [place] [address] [phone] Debbie Guy MD [address] [address] 10/27/2025 10:30 AM EST Office Visit [facility] Hematology Oncology [address] [place] [phone] Cici Cardenas, [address] [place] [address] documented as of this encounter Visit Diagnoses Not on filedocumented in this encounter Care Teams Learning And Development Coordinator Relationship Specialty Start Date End Date Lemuel Aquino MD [address] [place] [phone] PCP - General Internal Medicine 06/29/15 documented as of this encounter
--- OUTSIDE RECORDS SUMMARY | 2024-12-23 10:20 | XMS_ITS | Clinical Summary ---
Author Organization Formerly [facility] Address [address] [place] [address] Care Team Providers Care Real Estate Salesperson Name Role Phone CintiatiaLemuel Primary Care Provider [phone] Social History Tobacco Use Types Packs/Day Years Used Date Smoking Tobacco: Never Assessed Comments Unknown Sex and Gender Information Value Date Recorded Sex Assigned at Not on file Legal Sex Female 9:21 AM EDT Gender Identity Not on file Sexual Orientation Not on file Plan of Treatment Health Maintenance Due Date Last Done Comments Bone Density Screening 1955 Breast Cancer Screening 1955 CT Colonography 1955 Colonoscopy 1955 Colorectal Cancer Screening 1955 FIT-DNA (Cologuard) 1955 FIT 1955 FOBT 1955 Flex Sigmoidoscopy - 5y 1955 HIV Screening 1955 Zoster Vaccines (1 of 2) 2005 Pneumococcal Vaccine, 65+ Years (1 of 1 - PCV) 2020 COVID-19 Vaccine (4 - 2023-2 5 season) 2024 08/16/2022, 08/11/2021, 01/25/2021 Influenza Vaccine (#1) 2024 DTaP,Tdap,and Td Vaccines (2 - Td or Tdap) 11/12/2027 11/12/2017 HPV Vaccines Aged Out No longer eligi ble based on patient's age to complete this topic Hepatitis A Vaccines Aged Out No long er eligible based on patient's age to complete this topic Meningococcal Vaccine Aged Out No avtar tina eligible based on patient's age to complete this topic Insurance MEDICARE [employer] PPO Care Teams Real Estate Salesperson Relationship Specialty Start Date End Date Lemuel Aquino [address] [place] [id number] PCP - General Internal Medicine 07/16/24
--- OUTSIDE RECORDS SUMMARY | 2024-12-23 10:20 | XMS_ITS | Encounter Summary ---
Author Organization [place] [address] Care Team Providers Care Metal Trim Erector Name Role Phone Lemuel Aquino MD Primary Care Provider [phone] Reason for Visit * Reason Onset Date Comments Request For Order(s) 11/25/2024 Encounter Details Date Type Department Care Team (Late st Contact Info) Description 11/25/2024 Telephone Obstetrics and Gynecology - [facility] [address] [place] [phone] Luba Cesar, [address] [place] [phone] Request For Order(s) Social History Tobacco Use Types Packs/Day Years [...] as of this encounter Progress Notes * Anastasiya Madrigal RN - 11/25/2024 5:04 PM EST Images from the original note were not included. Detailed message left on pt voicemail with provider message below. Per Chest X-ray from 11/12/24 should suffice, If additional Chest xray is needed should contact her PCP. If has additional questions can return call to office. Luba Shayla, DO You27 minutes ago (4:35 PM) Patient had a chest XR on November 12. I would think she should ask her PCP for this * Anastasiya Madrigal RN - 11/25/2024 12:06 PM EST see message below. * Haleigh Beal - 11/25/2024 11:44 AM EST Chief Complaint/problem: patient states that oncologist is requesting dr cesar order chest xrays due to her referring her to them . Patient states [place] 12[place]02/2024 and if she doesn't answer the call to leave a message How long has the patient had this problem? Pt???s PACK PULLER provider: Luba Cesar DO Last menstrual period (LMP) or EDC (due date): na documented in this encounter Plan of Treatment Upcoming Encounters Date Type Department Care Team (Late st Contact Info) Description 12/26/2024 2:30 PM EDT Office Visit Internal Medicine - [facility] [address] [place] [address] Doretha Boucher NP [address] [place] [address] 05/15/2025 11:45 AM EDT Office Visit Pulmonolgy - [place] 175 [facility] [address] [place] [phone] Debbie Guy MD 175 [facility] [address] [place] [address] 10/27/2025 10:30 AM EST Office Visit [facility] Hematology Oncology [address] [place] [phone] Cici Cardenas DO [address] [place] [address] documented as of this encounter Visit Diagnoses Not on filedocumented in this encounter Care Teams Metal Trim Erector Relationship Specialty Start Date End Date Lemuel Aquino MD [address] [place] [id number] PCP - General Internal Medicine 06/29/15 documented as of this encounter
--- OUTSIDE RECORDS SUMMARY | 2024-12-23 10:20 | XMS_ITS | Data Portability ---
Author Organization [facility], [address] Address [address] [place] [address] Assessment No assessment recorded. Plan of Treatment Reminders Order Date Submit Date Provider Last Modified By Organization Details Last Modified Time Details Appointments None recorded. Lab culture, urine 2023 024 STITZER [facility] ([facility], [address] [place] [address], [place], [address], 16:06:30 urinalysis, dipstick 2023 024 [email or web address] 5 [facility], [address] [place], [address], 19:59:54 Referral None recorded. Procedures None recorded. Surgeries None recorded. Imaging None recorded. Medication Orders doxycycline hyclate 100 mg capsule 2023 024 [facility] #[id number], [phone] [place], [address], 20:00:37 cephalexin 500 mg capsule 2023 024 [facility]arm[facility] #[id number], [phone] [place], [address], 20:00:37 Patient TargetsNo targets recorded. Patient Instructions Encounter Date Encounter Id Patient Instructions Last Modified By Organization Details Last Modified Time 01/12/2024 [id number] skin abscess: care instructions [email or web address] Not available 01/12/2024 20:00:59 Urinary Tract Infection (UTI) in Women: Care Instructions [email or web address] Not available 01/12/2024 20:05:38 Apply a warm compress to the affected area for 15-20 minutes at a time up to 4 times a day. Take the antibiotics as prescribed. Take an over the counter probiotic daily while taking the antibiotic. See printed instructions. Drink plenty of fluids. Keep your appointment with your doctor as scheduled in 2 days. You will be contacted when your lab report returns. Seek Emergency Medical evaluation for any worsening symptoms such as high fever, shaking chills, increased pain, redness or swelling. Return to [facility] or go to the Emergency Department if your abscess develops a pus collection that needs drainage as discussed. [email or web address] Not available 01/12/2024 20:03:32 Reason for Referral None Reported. Results Created Date Observation Date Name Description Value Unit Range Abnormal Flag Note LastModifiedBy Organization Detail LastModifiedTime 01/12/20 24 01/15/2024 URINE CULTU RE, JAVIERI NE urine culture, routine FINAL REPORT Not Available [facility] ([facility]) [address] [place], [address], 01/15/2024 16:06:30 01/12/20 24 01/15/2024 URINE CULTU RE, ROUTI NE result 1 COMMEN T Cultu re shows less than 10,00 0 colon y formi ng units of bacte bonnie per mae liter of urine . This colon y count is not gener ally consi dered to be clini candace signi fican t. Not Available [facility] ([facility]) [address] [facility], [place], [address], 01/15/2024 16:06:30 01/12/20 24 01/12/2024 urina lysis , dipst ick Unknown Analyte Normal = light yellow Not Available [id number] [place], [address], 01/12/2024 19:34:47 01/12/20 24 01/12/2024 urina lysis , dipst ick Unknown Analyte Normal = clear Not Available [id number], [place], [address], 01/12/2024 19:34:47 01/12/2001/12/2024 urina lysis , dipst ick Unknown Analyte Normal = negati ve Not Available [address] [place], [address], 01/12/2024 19:34:47 01/12/20 24 01/12/2024 urina lysis , dipst ick Unknown Analyte Normal = Negati ve Not Available [address] [place], [address], 01/12/2024 19:34:47 01/12/20 24 01/12/2024 urina lysis , dipst ick Unknown Analyte Normal = Negati ve Not Available [address] [place], [address], 01/12/2024 19:34:47 01/12/20 24 01/12/2024 urina lysis , dipst ick Unknown Analyte Normal = 1.010, 1.015, 1.020 Not Available [address] [place], [address], 01/12/2024 19:34:47 01/12/20 24 01/12/2024 urina lysis , dipst ick Unknown Analyte Normal = Negati ve Not Available [address] [place], [address], 01/12/2024 19:34:47 01/12/20 24 01/12/2024 urina lysis , dipst ick Unknown Analyte Normal = 6.5, 7.0, 7.5, 8.0 Not Available [address] [place], [address], 01/12/2024 19:34:47 01/12/20 24 01/12/2024 urina lysis , dipst ick Unknown Analyte Normal = Negati ve Not Available [address] [place], [address], 01/12/2024 19:34:47 01/12/20 24 01/12/2024 urina lysis , dipst ick Unknown Analyte Normal = 0.2, 1.0 Not Available [address] [place], [address], 01/12/2024 19:34:47 01/12/20 24 01/12/2024 urina lysis , dipst ick Unknown Analyte Normal = Negati ve Not Available [address] [place], [address], 01/12/2024 19:34:47 01/12/20 24 01/12/2024 urina lysis , dipst ick Unknown Analyte Normal = Negati ve Not Available [address] [place], [address], 01/12/2024 19:34:47 01/12/20 24 01/12/2024 urina lysis , dipst ick Unknown Analyte Trace Not Available [id number] [place] [address] [address] [place], [address], 01/12/2024 19:34:47 01/12/20 24 01/12/2024 urina lysis , dipst ick Unknown Analyte Negati ve Not Available [address] [place], [address], 01/12/2024 19:34:47 01/12/20 24 01/12/2024 urina lysis , dipst ick Unknown Analyte 0.2 E.U./d L Not Available [address] [place], [address], 01/12/2024 19:34:47 01/12/20 24 01/12/2024 urina lysis , dipst ick Unknown Analyte Negati ve Not Available [address] [place], [address], 01/12/2024 19:34:47 01/12/20 24 01/12/2024 urina lysis , dipst ick Unknown Analyte 5.5 Not Available [facility] [address] [place], [address], 01/12/2024 19:34:47 01/12/20 24 01/12/2024 urina lysis , dipst ick Unknown Analyte Trace- intact Not Available [address] [place], [address], 01/12/2024 19:34:47 01/12/20 24 01/12/2024 urina lysis , dipst ick Unknown Analyte 1.030 Not Available [facility] [address] [place], [address], 01/12/2024 19:34:47 01/12/20 24 01/12/2024 urina lysis , dipst ick Unknown Analyte Negati ve Not Available [address] [place], [address], 01/12/2024 19:34:47 01/12/20 24 01/12/2024 urina lysis , dipst ick Unknown Analyte Small Not Available [facility] [address] [place], [address], 01/12/2024 19:34:47 01/12/20 24 01/12/2024 urina lysis , dipst ick Unknown Analyte Negati ve Not Available [id number] [place], [address], 01/12/2024 19:34:47 01/12/2001/12/2024 urina lysis , dipst ick Unknown Analyte Turbid Not Available [facility] [address] [place], [address], 01/12/2024 19:34:47 01/12/2001/12/2024 urina lysis , dipst ick Unknown Analyte Yellow Not Available _ [facility] [address] [place], [address], 01/12/2024 19:34:47 Result Notes None recorded. Problems Name Problem SNOMED Code Status Onset Date Resolution Date Notes Provider Name and Address Organization Details Recorded Time Anxiety 92730398 Active 2023 Selina Garcia null, PA - [facility] 4 18:36:09 Depressive disorder 17921432 Active 2023 Selina Garcia null, PA - [facility] 4 18:36:23 Hypertensive disorder 20525615 Active 2023 Selina Garcia null, PA - [facility] 4 18:36:47 Problem Notes None recorded. Procedures Surgical History Date Name Laterality Status Provider Name and Address Organization Details Recorded Time Hysterectomy/bladde r repair completed Selina Garcia PA - [facility] 01/12/2024 18:39:48 cholecystectomy completed Selina Garcia PA - [facility] 01/12/2024 18:40:27 Gastric bypass for obesity completed Selina Garcia PA - [facility] 01/12/2024 18:40:44 Mastectomy sleeve completed Selina Garcia PA - [facility] 01/12/2024 18:53:25 Imaging Results None recorded. Procedure Notes None recorded. Medical Equipment None Reported. Allergies Allergen ID Allergen Name Allergen Category Reaction Reaction Severity Criticality Documentation Date Start Date Code Code System Note Provider Name and Address Organization Details Recorded Time 990605 bacitraci n medicatio n other Not available Not available 01/12/2024 1291 RxNorm eyes bleed , blist ers Selina Melgarnez null, PA - [facility] 4 20:11:15 695520 Bactrim medicatio n rash Not available Not available 01/12/2024 73198 9 RxNorm Selina Garcia null, PA - [facility] 4 20:11:41 972880 Aleve medicatio n hives Not available Not available 01/12/2024 70792 1 RxNorm Selina Garcia null, PA - [facility] 4 20:12:25 Medications Name Sig Start Date Stop Date Status Note LastModified by Organization Details LastModified Time doxycycline hyclate 100 mg capsule Take 1 capsule twice a day by oral route for 7 days. 2023 active Not Available Not Available Not Avai lable trazodone 50 mg tablet Take 1 tablet every day by oral route. active Not Available Not Available No t Available cephalexin 500 mg capsule Take 1 capsule 3 times a day by oral route for 7 days. 2023 active Not Available Not Available Not Avai lable Alophen (bisacodyl) 5 mg tablet,delayed release Take 2 tablets every day by oral route. active Not Available Not Available No t Available escitalopram 5 mg tablet Take 1 tablet every day by oral route. active Not Available Not Available No t Available chlorhexidine gluconate 0.12 % mouthwash Place 15 mL twice a day by mucous membrane route. active Not Available Not Available No t Available ammonium lactate active Not Available Not Available Not Available Bactrim active Not Available Not Avail able Not Available Vitals Date Recorded Body height Body mass index (BMI) Body weight Oxygen saturation Oxygen saturation in Arterial blood by Pulse oximetry Heart rate Pain severity - 0-10 verbal numeric rating [Score] - Reported Respiratory rate Body temperature Systolic blood pressure Diastolic blood pressure Provider Name and Address Organization Details Last Updated DateTime 4 162.56 cm 37.4 kg/m2 40319.1 4 g 97 % 97 % 88 /min 9 18 /min 98.6 [degF] 183 mm[Hg] 98 mm[Hg] Selinaejssica Garcia PA - [facility] 18:26:59 Social History Question Answer Notes LastModified by Organizat ion Details LastModified Time Tobacco Smoking Status Never Smoker Selina Garcia MELLISA najera - [facility] 01/12/2024 18:39:12 What Is Your Level Of Alcohol Consumption? None [email or web address] Information not available 01/12/2024 Are You Currently Employed? No Information not available 01/12/2024 What Is The Highest Grade Or Level Of School You Have Completed Or The Highest Degree You Have Received? NF02484-3 [email or web address] Information not available 01/12/2024 Have You Had A Flu Shot This Season? No [email or web address] Information not available 01/12/2024 What Is Your Water Source? City [email or web address] Information not available 01/12/2024 What Is Your Heat Source? Wood [email or web address] Information not available 01/12/2024 Have You Had Direct Contact, Or Contact During Intimacy, With Monkeypox Rash, Scabs, Or Body Fluids From A Person With Monkeypox? No [email or web address] Information not available 01/12/2024 Do You Use Any Illicit Or Recreational Drugs? No Information not available 01/12/2024 Have You Recently Traveled Abroad? No [email or web address] Information not available 01/12/2024 Are You Currently In School? No [email or web address] Information not available 01/12/2024 Do You Or Have You Ever Used Any Other Forms Of Tobacco Or Nicotine? No [email or web address] Information not available 01/12/2024 Sex: Unknown Functional Status None recorded. Mental Status None recorded. Family History Relationship Description Onset Age of this Age Resolved Age Notes LastModified by Organization Details LastModified Time Mother Malignant tumor of breast [email or web address] Not available 2023 18:37:40 Mother Stented artery Not available 2023 18:37:57 Notes:father passed from a h eart attack Medical History No medical history recorded. Gynecological History Statement/Question Response Is there any chance of ? No LMP N/A Obstetrics History GPAL:G 0 P 0 0 0 0 Past Encounters Encounter ID Performer Location Encounter Start Date Encounter Closed Date Diagnosis/Indication Diagnosis SNOMED-CT Code Diagnosis ICD10 Code Diagnosis Note [id number] [address] [place] [address] 06/13/2022 12:53:35 06/13/2022 15:30:47 [id number] [place] [id number] [place] [address] 01/12/2024 17:30:33 01/12/2024 20:04:50 Increased frequency of urination 560107299 R35.0 Abscess 580813051 L02.91 Acute urin hood tract infection 584464420 N39.0 Health Concerns Section Related Observation LastModified by Organization Detai ls LastModified Time None Recorded Concern Status LastModified by Organization Details LastModified Time None Recorded Advance Directives Directive None Recorded Payers Encounter Date Sequence Insurance Name Policy Number Policy Solares Covered Member ID Solares Member ID Guarantor Name 06/13/2022 1 [place]: [employer] Ashli Khan [id number] Ashli Khan 06/13/2022 2 [place] [facility] Ashli Khan [id number] Ashli Khan 01/12/2024 1 [employer] CLAIM[employer] OFFICE Ashli Khan [id number] Ashli Khan Notes Date Note Type Note Provider Name and Address Organization Details Recorded Time 01/12/2024 text/html AbscessReported bypatient.Location: oin Onset/Timing:gradual Duration:3 days. Quality:no drainage;painful;tend erness;warmth;swellin g;redness Severity:worsening; moderate Context:obese Associated Symptoms:no fever; no red streaking; no malaise; no headache; no enlarged lymph nodes;chillsNotes:68 year old female presenting for evaluation of a developing abscess in her left inguinal region for the past 3 days. She has had pain at the site with redness and swelling but no drainage. No fever but some chills. She also complains of urinary frequency and is concerned she may have a UTI. No nausea, vomiting, diarrhea, abdominal pain, rash, blood in her urine, flank pain, hx of renal stones, urinary urgency or dysuria. Cally Michelle MD [address] [place], [place] [address], [address], PA - [facility] 01/16/2024 12:06:30 OBGyn Episode No OBEpisode recorded.
--- OUTSIDE RECORDS SUMMARY | 2024-12-23 10:20 | XMS_ITS | Clinical Summary ---
Author Organization [facility] Address [address] [place] [address] Phone Care Team Providers Care Flag Signaler Name Role Phone Lemuel Aquino MD Primary Care Provider [phone] Allergies Active Allergy Reactions Criticality Noted Date Comments Azilsartan Med-Chlorthalidone 02/04/2015 Reaction not mentioned Naproxen Anaphylaxis High 02/04/2015 anaphylaxis Naproxen Sodium Hives 11/12/2024 Other Reaction(s): code blue, hives, tongue swelling Nsaids (Non-Steroidal Anti-Inflammatory Drug) 11/12/2024 Other Reaction(s): GI Upset Sulfamethoxazole-Trimethop rim 02/04/2015 Rash/ blisters Medications calcium carbonate (TUMS ULTRA) 1,000 mg (400 mg elemental calcium) chewable tablet Chew 1 tablet (1,000 mg total) 1 (one) time each day. Active ergocalciferol, vitamin D2, (VITAMIN D2 ORAL) Take by mouth. Active acetaminophen (TYLENOL 8 HOUR) 650 mg 8 hr tablet Take 650 mg by mouth every 8 (eight) hours as needed for pain. - Oral Patient not taking: Reported on 07/21/2024 Active albuterol HFA (PROAIR HFA ; PROVENTIL HFA ; VENTOLIN HFA) 90 mcg/actuation inhaler Inhale 2 puffs into the lungs every 4 (four) hours as needed for wheezing. 07/26/20 23 Active ammonium lactate (AMLACTIN) 12 % cream : Apply topically as needed for dry skin. 11/15/19 21 Active budesonide-formote roL (SYMBICORT) 160-4.5 mcg/actuation inhaler Inhale 2 inhalations into the lungs 2 (two) times a day. Active cyanocobalamin, vitamin B-12, 1,000 mcg tablet, sublingual [address] 1 tablet under the tongue daily. - Sublingual Patient not taking: Reported on 07/21/2024 04/28/20 19 Active cholecalciferol (VITAMIN D-3) 25 mcg (1,000 unit) tablet Take 1,000 Units by mouth daily. - Oral Patient not taking: Reported on 07/21/2024 Active fluticasone furoate-vilanteroL (Breo Ellipta) 200-25 mcg/dose inhaler Take 1 puff by mouth 2 (two) times a day. 11/16/19 22 Active gabapentin (NEURONTIN) 100 mg capsule Take 100 mg by mouth daily. ??- Oral Patient not taking: Reported on 07/21/2024 Active meclizine (ANTIVERT) 25 mg tablet Take 1 tablet (25 mg total) by mouth 3 times daily as needed. Active methylPREDNISolone (MEDROL DOSPAK) 4 mg tablet Take 1 Package by mouth. 09/27/20 23 Active montelukast (SINGULAIR) 10 mg tablet Take 1 tablet (10 mg total) by mouth at bedtime. 05/09/20 23 Active oxyCODONE (ROXICODONE) 5 mg immediate release tablet 12/31/19 23 Active traZODone (DESYREL) 100 mg tablet Take 1 tablet (100 mg total) by mouth. Active traZODone (DESYREL) 50 mg tablet Take 1 tablet (50 mg total) by mouth at bedtime. 04/14/20 22 Active triamcinolone (NASACORT) 55 mcg nasal inhaler Administer 1 spray into each nostril 2 (two) times a day. 01/10/20 22 Active venlafaxine XR (EFFEXOR-XR) 37.5 mg 24 hr capsule 02/08/20 23 Active venlafaxine XR (EFFEXOR-XR) 75 mg 24 hr capsule Take 1 capsule (75 mg total) by mouth 1 (one) time each day. Active multivitamin (MULTIPLE VITAMINS ORAL) Take 1 tablet by mouth 1 (one) time each day. Multiple Vitamins-Mineral s (MULTI ADULT GUMMIES PO) 02/14/20 Active psyllium seed, with sugar, (FIBER ORAL) Take by mouth. Activ e omeprazole (PriLOSEC) [address] capsule Take 1 capsule (10 mg total) by mouth daily. Active atorvastatin (LIPITOR) 40 mg tabletIndications: Mixed hyperlipidemia Take 1 tablet (40 mg total) by mouth 1 (one) time each day. 90 tablet 1 09/02/20 24 Active Additional Information Patient not taking.Reported on 12/22/2024 amLODIPine (NORVASC) 2.5 mg tablet Take 1 tablet (2.5 mg total) by mouth 1 (one) time each day. 90 tablet 1 09/02/20 24 Active omeprazole (PriLOSEC) [address] capsule Take 1 capsule (20 mg total) by mouth 1 (one) time each day. 90 capsule 1 09/02/20 24 Active fluticasone propionate (FLONASE) 50 mcg/actuation nasal spray 1 spray in each nostril daily 48 g 1 09/02/20 24 Active hydroCHLOROthiazid e (HYDRODIURIL) 25 mg tablet Take 1 tablet (25 mg total) by mouth 1 (one) time each day. 90 tablet 1 09/02/20 24 Active lisinopril (PRINIVIL,ZESTRIL) 40 mg tablet Take 1 tablet (40 mg total) by mouth 1 (one) time each day. 90 tablet 1 09/02/20 24 Active albuterol 2.5 mg /3 mL (0.083 %) nebulizer solutionIndication s:Moderate persistent asthma, unspecified whether complicated Take 3 mL (2.5 mg total) by nebulization every 6 (six) hours if needed for wheezing. 360 mL 12/23/19 026 Active guaiFENesin (Mucinex) 600 mg 12 hr tabletIndications: Abnormal chest CT Take 2 tablets (1,200 mg total) by mouth 2 (two) times a day. Do not crush, chew, or split. 120 each 12/23/19 026 Active Active Problems Problem Noted Date Diagnosed Date Gait instability 05/14/2023 Primary osteoarthritis of left knee 05/14/2023 Tendinitis involving left hip abductors 05/14/20 Trochanteric bursitis of left hip 05/14/2023 Trochanteric bursitis of right hip 05/14/2023 Insomnia 03/10/2021 Mild episode of recurrent major depressive disor estevan 03/10/2021 Bilateral carpal tunnel syndrome 01/17/2021 Dyspnea 01/11/2021 Overview (12/05/2023): Dyspnea Hiatal hernia 10/31/2018 Thoracic segment dysfunction 07/25/2017 Nonallopathic lesion of costovertebral region Thoracic back sprain 06/25/2017 IBS (irritable bowel syndrome) 2017 Pulmonary nodules 11/17/2016 Overview (12/05/2023): Last Assessment & Plan: Subcentimeter 2 mm pulmonary nodules. Patient is a non-smoker. No need for follow-up at this point. Primary osteoarthritis of right knee 05/11/2016 Overview (12/05/2023): Has received hyaluronic acid injections Morbid obesity 04/09/2015 Overview (12/05/2023): Gastric sleeve done 02/2016 PTSD (post-traumatic stress disorder) 02/10/2015 Anxiety 02/04/2015 Asthma 02/04/2015 Overview (12/05/2023): Last Assessment & Plan: Mild intermittent asthma Continue with albuterol. Sleep apnea 02/04/2015 Overview (12/05/2023): Last Assessment & Plan: Patient has sleep apnea since 2008 She has not been using her CPAP because run out of supplies New prescriptions for supplies Given that the study was done in 2007, she may need a new machine with new parameters and I have ordered a new sleep study to be done. Come back after sleep study Chronic headaches 02/04/2015 Depression 02/04/2015 Gastroesophageal reflux disease without esophagi tis 02/04/2015 Overview (12/05/2023): 09/09/2018: No esophagitis on EGD. Not on PPI or H2 sanjuana treatment. HTN (hypertension) 02/04/2015 Mixed hyperlipidemia 02/04/2015 Vitamin D deficiency 02/04/2015 Encounters Date Type Department Care Team Description 12/22/2024 10:30 AM EDT [facility] [address] [place] [phone] Debibe Guy MD Abnormal chest CT (Primary Dx); Moderate persistent asthma, unspecified whether complicated; MARILOU (obstructive sleep apnea) 12/19/2024 [facility] [address] [place], [place] [address] [phone] Lemuel Aquino MD Medication Problem 12/18/2024 [facility] [address] [place] [address] Lemuel Aquino MD PROVIDER CALLBACK [facility] [address] [place] [phone] Debbie Guy MD Hospital Follow-up 12/16/2024 Telephone [facility] [place] [place] [phone] Lemuel Aquino MD Diarrhea 11/26/2024 Telephone Breast Care Center [facility] [address] [phone] Christy Kumar [place] 11/26/2024 [facility] [address] [place], [place] [address], [place] [phone] Lemuel Aquino MD imaging request 11/25/2024 Telephone Obstetrics and Gynecology - [place] [address] [place], [place] [phone] Luba Mcguire DO Request For Order(s) 11/12/2024 3:19 PM EST - 11/12/2024 11:59 PM EST Hospital Encounter Walk-In [address] [phone] Subacute cough Discharge Disposition: Home or Self Care 11/12/2024 2:30 PM EST Office Visit Walk-In [address] [phone] Nicole Roque NP Subacute cough (Primary Dx) 11/10/2024 2:15 PM EST Office Visit Obstetrics and Gynecology - [address] [phone] Luba Mcguire DO Vulvar cyst (Primary Dx); Status post bilateral mastectomy; Axillary swelling 10/31/2024 Telephone Obstetrics and Gynecology - [address] [phone] Nancy Bolivar CNM Vaginal/vulvar Complaint 10/27/2024 Telephone [facility] Hematology Oncology [address] [place] [phone] Essence Bar, JAMIE [facility] 2nd op 10/21/2024 10:30 AM EST Office Visit [facility] Hematology Oncology [address] [place] [phone] Cici Cardenas DO Easy bruising (Primary Dx); Lupus anticoagulant positive 10/12/2024 9:15 AM EST Office Visit Walk-In [address] [phone] Sylvain Spann PA Oral candidiasis (Primary Dx) 10/01/2024 11:30 AM EST Office Visit Walk-In [address] [phone] Sylvain Spann PA Viral URI (Primary Dx) 10/01/2024 Telephone Internal Medicine - [address] [phone] Lemuel Aquino MD Cough from Last 3 Months Immunizations Name Administration Dates Next Due Pfizer (ages 12 & older) Bivalent, COVID-19 11/2021 Pfizer SARS-CoV-2 COVID-19, mRNA, LNP-S, preservative free 08/11/2021,01/25/2021,11/27/2020 Tdap Tetanus diptheria acell ular pertussis (Boostrix; Adacel) 7yo and older 11/12/2017 Surgical History Surgery Date Site/Laterality Comments COLONOSCOPY 10/05/2014 PROCEDURE: HISTORICAL COLONOSCOPY; COMMENT: williams; negative exam. MASTECTOMY 2007 Bilateral PROCEDURE: HISTORICAL MASTECTOMY; COMMENT: left 2012 HYSTERECTOMY PROCEDURE: HISTORICAL HYSTERECTOMY CHOLECYSTECTOMY PROCEDURE: HISTORICAL CHOLECYSTECTOMY STOMACH SURGERY 02/2016 PROCEDURE: IL UNLISTED PROCEDURE STOMACH; COMMENT: Sleeve gastrectomy UPPER GASTROINTESTINAL ENDOSCOPY 09/09/2018 PROCEDURE: IL UPPER GI ENDOSCOPY PERFORMED; COMMENT: 2 cm axial hiatal hernia, evidence of gastric sleeve surgery, otherwise no mucosal lesions, not on PPI nor H2 sanjuana treatment. SHOULDER SURGERY Bilateral PROCEDURE: HISTORICAL SHOULDER SURGERY; COMMENT: arthroscopic left 02/2022, 08/2022 CARPAL TUNNEL RELEASE Right PROCEDURE: IL NEUROPLASTY &/TRANSPOS MEDIAN NRV CARPAL TUNNE; COMMENT: 2021 [facility] WISDOM TOOTH EXTRACTION N/A PROCEDURE: HISTORICAL WISDOM TEETH EXTRACTION; COMMENT: 7 teeth extracted, Medical History Medical History Date Comments HTN (hypertension) 02/04/2015 DX:HTN (hyper tension) Asthma 02/04/2015 DX:Asthma Anxiety 02/04/2015 DX:Anxiety Depression 02/04/2015 DX:Depression Mixed hyperlipidemia 02/04/2015 DX:Mixed hy perlipidemia History of breast cancer 02/04/2015 DX:Hist ory of breast cancer; COMMENT: Right/ mastectomy Sleep apnea 02/04/2015 DX:Sleep apnea Vitamin D deficiency 02/04/2015 DX:Vitamin D deficiency Esophageal reflux 02/04/2015 DX:Esophageal reflux Chronic headaches 02/04/2015 DX:Chronic hea daches Osteoarthritis of both knees 05/11/2016 DX: Osteoarthritis of both knees H/O bariatric surgery 08/18/2016 DX:H/O bar iatric surgery IBS (irritable bowel syndrome) 2017 D X:IBS (irritable bowel syndrome) Hiatal hernia 10/31/2018 DX:Hiatal hernia History of gastric surgery DX:Hi story of gastric surgery IBS (irritable bowel syndrome) D X:IBS (irritable bowel syndrome) Straining with stools DX:Straini ng with stools Pannus, abdominal DX:Pannus, abd ominal Family History Medical History Relation Name Comments Colon cancer Brother 1 x5 1 brother in [facility] Colon cancer Brother 2 40's Other: covid Brother 2 Mental illness Daughter Coronary artery disease Father HTN Heart attack Mother Colon cancer Other Crohn's disease Other Mental illness Son on no meds Ulcerative colitis Son Colon cancer Uncle Relation Name Status Comments Aunt Alive Mat Aunt breast CA. bilat age 50's Brother 1 x5 1 Alive x5, Marc had c olon CA Brother 2 Daughter Alive born E[place] i n remission Father (Age 60's ) [place], smo ker, HTN Mother Alive had R breast CA age -70 Other Nephew Sister 1 Alive Sister 2 Alive Son Alive born , has u lcerative colitis (pt's sister's son--Crohn's) Uncle Social History Tobacco Use Types Packs/Day Years Used Date Smoking Tobacco: Former Cigarettes 0.3 6.4 0 1974 - 10/15/1980 Passive Smoke Exposure: Past Smokeless Tobacco: Never Tobacco Cessation:Counseling Given: Not Answered Alcohol Use Standard Drinks/Week Comments No 0 (1 standard drink = 0.6 oz pur e alcohol) Comments No Sex and Gender Information Value Date Recorded Sex Assigned at Not on file Legal Sex Female 8:39 PM EST Gender Identity Not on file Sexual Orientation Not on file Obstetrics History Para Term AB IAB SAB Ectopic Multiple Livin g Live Births 4 2 2 2 1 1 2 2 Date Outcome GA Total Labor Labor/2nd/3rd Weight Sex Type Anes PTL Belle A1 A5 Name Clin Term Vag-S pont Living Term Vag-S pont Living IAB SAB Last Filed Vital Signs Vital Sign Reading Time Taken Comments Blood Pressure 122/72 12/22/2024 10:36 AM EDT Pulse 80 12/22/2024 10:36 AM EDT Temperature 35.8 ??C (96.5 ??F) 12/22/2024 10:36 AM E DT Respiratory Rate 18 12/22/2024 10:36 AM EDT Oxygen Saturation 97% 12/22/2024 10:36 AM EDT Inhaled Oxygen Concentration - - Weight 106 kg (232 lb 9.6 oz) 12/22/2024 10:36 A M EDT Height 165.1 cm (5' 5 ) 12/22/2024 10:36 AM EDT Body Mass Index 38.71 12/22/2024 10:36 AM EDT Plan of Treatment Upcoming Encounters Date Type Department Care Team (Late st Contact Info) Description 12/26/2024 2:30 PM EDT Office Visit Internal Medicine - [facility] [address] [place] [phone] Doretha Boucher NP [address] [place] [address] 05/15/2025 11:45 AM EDT Office Visit Pulmonolgy - [place] [address] [phone] Debbie Guy MD [address] [address] 10/27/2025 10:30 AM EST Office Visit [facility] Hematology Oncology [address] [place] [phone] Cici Cardenas DO [address] [place] [address] Health Maintenance Due Date Last Done Comments Pneumococcal Vaccine: 50+ Years (1 of 2 - PCV) 1974 Zoster Vaccines (1 of 2) 2005 RSV Immunization Patients 60+ Years Old (1 - Risk 60-74 years 1-dose series) 2015 Depression Screening 09/23/2022 Falls Risk Assessment 09/23/2022 Hepatitis C Screening 09/23/2022 Medicare Annual Wellness Visit 09/23/2022 Social Influencers of Health Screening 09/23/2022 COVID-19 Vaccine ( season) 2024 07/23/2023, 08/16/2022, 08/11/2021, Additional history exists Influenza Vaccine (#1) 2024 Hypertension/CHF/CAD Annual BMP Blood Test 08/05/2025 08/05/2024 Colorectal Cancer Screening: Colonoscopy 01/10/2026 DTaP,Tdap,and Td Vaccines (2 - Td or Tdap) 11/12/2027 11/12/2017 Cholesterol Screening (Lipid Panel) 08/05/2029 08/05/2024 Osteoporosis Screening (Bone Density Screening) 01/06/2032 01/05/2022 HIB Vaccines Aged Out No longer eligi ble based on patient's age to complete this topic HPV Vaccines Aged Out No longer eligi ble based on patient's age to complete this topic Hepatitis A Vaccines Aged Out No long er eligible based on patient's age to complete this topic Hepatitis B Vaccines Aged Out No long er eligible based on patient's age to complete this topic IPV Vaccines Aged Out No longer eligi ble based on patient's age to complete this topic MMR Vaccines Aged Out No longer eligi ble based on patient's age to complete this topic Meningococcal ACWY Vaccine Aged Out N o longer eligible based on patient's age to complete this topic Meningococcal B Vacine Aged Out No lo nger eligible based on patient's age to complete this topic RSV Immunization Patients Under 20 months Aged Out No longer eligible based on patient's age to complete this topic Varicella Vaccines Aged Out No longer eligible based on patient's age to complete this topic Procedures Procedure Name Priority Date/Time Associated Diagnosis Comments XR CHEST 2 VIEWS STAT 11/12/2024 3:26 PM EST Subacute cough POC RAPID [id number], MOLECULAR Routine 10/01/2024 2:05 PM EST Viral URI DXA BONE DENSITY STUDY 1+ SITS AXIAL SKEL Routine 01/05/2022 2:47 PM EDT Encounter for screening for osteoporosis from Last 3 Months or Most Recently Relevant to Health Maintenance Results * XR Chest 2 Views (11/12/2024 3:26 PM EST) Anatomical Region Laterality Modality Body Radiographic Kimberly ging 11/12/2024 4:04 PM EST Narrative 11/12/2024 4:05 PM EST Chest, 2 views. History cough. Comparison with previous examinations, latest from 11/01/2018. Lungs are hyperinflated. ??There is no acute airspace consolidations, pneumothorax, pleural effusion or congestive heart failure. ??Heart is normal in size. CONCLUSIONS: Hyperinflation. ??No acute radiographic abnormalities in the chest. ??No significant interval change. -------- FINAL REPORT -------- Dictated By: Dayanara Glez Dictated Date: 11/12/2024 16:04 ET Assigned Physician: Dayanara Glez Reviewed and Electronically Signed By: Dayanara Glez Signed Date: 11/12/2024 16:05 ET Workstation ID: [id number] Transcribed By: Self Edit Transcribed Date: 11/12/2024 16:04 ET Procedure Note Dayanara Glez MD - 11/12/2024 Chest, 2 views. History cough. Comparison with previous examinations, latest from 11/01/2018. Lungs are hyperinflated. There is no acute airspace consolidations,pneumothorax, pleural effusion or congestive heart failure. Heart isnormal in size. CONCLUSIONS: Hyperinflation. No acute radiographic abnormalities in thechest. No significant interval change. -------- FINAL REPORT -------- Dictated By: Dayanara Glez Dictated Date: 11/12/2024 16:04 ET Assigned Physician: Dayanara Glez Reviewed and Electronically Signed By: Dayanara Glez Signed Date: 11/12/2024 16:05 ET Workstation ID: [id number] Transcribed By: Self Edit Transcribed Date: 11/12/2024 16:04 ET Nicole Roque NP IMG XR PROCEDURES Final Result * Poc Rapid [id number], MOLECULAR (10/01/2024 2:05 PM EST) COVID-19/SARS- COV-2 Rapid POC Negative Negative Internal Control Pass Yes Yes Swab Nasopharyngeal structure / Unknown 10/01/2024 2:05 PM EST us Sylvain PAK POINT OF CARE TEST ENTER/E DIT ORDERABLES Final Result * DXA BONE DENSITY STUDY 1+ CECELIA SANABRIA (01/05/2022 2:47 PM EDT) Anatomical Region Laterality Modality Bone Densitometr y 07/20/2021 8:43 AM EDT Narrative 01/06/2022 11:43 AM EDT BONE DENSITY (DEXA) ? Lumbar Spine T-score is -0.5. ?? (SD relative to 20-29 y/o adult) Z-score is 1.4. ??(SD relative to age matched peers) This is considered normal by WHO criteria. Left Hip T-score is -2.2. Z-score is -0.6. This is considered osteopenia by WHO criteria. IMPRESSION: This patient is considered have osteopenia by WHO criteria. This patient has a 17% risk of major osteoporotic fracture and a 3.3% risk of hip fracture over the next 10 years. (World Health Organization Fracture Risk Assessment) [facility] Department of Internal Medicine recommends using National Osteoporosis Foundation (NOF) guidelines in treatment decisions related to osteoporosis. NOF guidelines suggest considering treatment for postmenopausal women and men aged 50 or older presenting with the following: History of hip or vertebral fracture. T-score = -2.5 (DXA) at the femoral neck, total hip, or spine, after appropriate evaluation to exclude secondary causes. Low bone mass (T-score between -1.0 and -2.5 at the femoral neck or spine) AND a 10-year probability of a hip fracture = 3% OR a 10-year probability of a major osteoporosis-related fracture = 20% based on the [place]-adapted WHO algorithm Please note that all treatment decisions require clinical judgment and consideration of individual patient factors, including patient preferences, co-morbidities, previous drug use, risk factors not captured in the FRAX model (e.g., frailty, falls, vitamin D deficiency, increased bone turnover, interval significant decline in bone density) and possible under- or over-estimation of fracture risk by FRAX. Optional alternative screening schedule based on vladimir Edwards., BANNER November 02, 2011 for patients with osteopenia (based on hip BMD T-score) is as follows: * ??advanced osteopenia (T scores -2.00 to -2.49), BMD testing every year * ??moderate osteopenia (T scores -1.50 to -1.99), BMD testing every 5 years mild osteopenia or normal BMD (T scores -1.50 and higher), BMD testing every 15 years Procedure Note Lu Dorsey MD - 10/03/2022 BONE DENSITY (DEXA) Lumbar Spine T-score is -0.5. (SD relative to 20-29 y/o adult) Z-score is 1.4. (SD relative to age matched peers) This is considered normal by WHO criteria. Left Hip T-score is -2.2. Z-score is -0.6. This is considered osteopenia by WHO criteria. IMPRESSION: This patient is considered have osteopenia by WHO criteria. This patienthas a 17% risk of major osteoporotic fracture and a 3.3% risk of hip fracture over the next10 years. (World Health Organization Fracture Risk Assessment) [facility] Department of Internal Medicine recommendsusing National Osteoporosis Foundation (NOF) guidelines in treatment decisions related toosteoporosis. NOF guidelines suggest considering treatment for postmenopausal women and menaged 50 or older presenting with the following: History of hip or vertebral fracture. T-score = -2.5 (DXA) at the femoral neck, total hip, or spine, afterappropriate evaluation to exclude secondary causes. Low bone mass (T-score between -1.0 and -2.5 at the femoral neck or spine)AND a 10-year probability of a hip fracture = 3% OR a 10-year probability of a majorosteoporosis-related fracture = 20% based on the [place]-adapted WHO algorithm Please note that all treatment decisions require clinical judgment andconsideration of individual patient factors, including patient preferences, co- morbidities,previous drug use, risk factors not captured in the FRAX model (e.g., frailty, falls, vitaminD deficiency, increased bone turnover, interval significant decline in bone density) andpossible under- or over-estimation of fracture risk by FRAX. Optional alternative screening schedule based on vladimir Edwards., NEJMJanuary 2011 for patients with osteopenia (based on hip BMD T-score) is as follows: * advanced osteopenia (T scores -2.00 to -2.49), BMD testing every year * moderate osteopenia (T scores -1.50 to -1.99), BMD testing every 5years mild osteopenia or normal BMD (T scores -1.50 and higher), BMD testingevery 15 years Lemuel Aquino MD [facility] DXA PROCEDURES Final Resul t from Last 3 Months or Most Recently Relevant to Health Maintenance Insurance * Guarantor: Ashli Khan Account Type Relation to Patient Date of Phone Billing Address Personal/Family Self 1955 [address] [facility] [place] [place] [address] [place] MEDICARE ADVANTAGE Care Teams Flag Signaler Relationship Specialty Start Date End Date Lemuel Aquino MD [address] [place] [address] [id number] PCP - General Internal Medicine 06/29/15
--- OUTSIDE RECORDS SUMMARY | 2024-12-23 10:20 | XMS_ITS | Encounter Summary ---
Author Organization [employer] [place] [address] Care Team Providers Care Ict Teacher Name Role Phone Lemuel Aquino MD Primary Care Provider [phone] Reason for Visit * Reason Onset Date Comments Medication Problem 12/19/2024 Encounter Details Date Type Department Care Team (Late st Contact Info) Description 12/19/2024 Telephone Internal Medicine - [address] [phone] Lemuel Aquino MD [address] [place] [id number] Medication Problem Social History Tobacco Use Types Packs/Day Years [...] Progress Notes * Sridevi Lynn MA - 12/19/2024 4:41 PM EST Pt notified * Rashid Sousa NP - 12/19/2024 4:38 PM EST This can be discussed on upcoming appointment next week. 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 and was twice verified fr a consult at [facility] and [facility]). She wants to know if she can continue taking it. Pt has coming appt next wk.for ER f/up visits * Shara Allred - 12/19/2024 12:02 PM EST Medication Problem: What is the name of the medication patient is having a problem with?: omeprazole What is the problem?: dx with lupus fo the blood, wanst to know if she should be taking this [facility] . If is safe Who is calling about the problem? : The patient Is this a NEW medication?: no How long has the patient been taking this medication? N/a Who prescribed this medication for the patient? Dr Aquino Who is patients PCP?: Lemuel Aquino MD Payor: [employer] / Plan: [employer] MED[employer]ARE ADVANTAGE / Product Type: *No Product type* / documented in this encounter Plan of Treatment Upcoming Encounters Date Type Department Care Team (Late st Contact Info) Description 12/26/2024 2:30 PM EDT Office Visit Internal Medicine - [place] [address] [place] [id number] Doretha Boucher NP [address] [place] [id number] 05/15/2025 11:45 AM EDT Office Visit Pulmonolgy - [place] 175 [facility] [address] [place] [phone] Debbie Guy MD 175 [facility] [address] [place] [address] 10/27/2025 10:30 AM EST Office Visit [facility] Hematology Oncology [address] [place] [phone] Cici Cardenas DO [address] [place] [address] documented as of this encounter Visit Diagnoses Not on filedocumented in this encounter Care Teams Ict Teacher Relationship Specialty Start Date End Date Lemuel Aquino MD [address] [place] [id number] PCP - General Internal Medicine 06/29/15 documented as of this encounter
--- OUTSIDE RECORDS SUMMARY | 2024-12-23 10:20 | XMS_ITS | Encounter Summary ---
Author Organization [place] [address] Care Team Providers Care Director Of Managed Services Name Role Phone Lemuel Aquino MD Primary Care Provider [phone] Reason for Visit * Reason Onset Date Comments Diarrhea 12/16/2024 Encounter Details Date Type Department Care Team (Late st Contact Info) Description 12/16/2024 Telephone Internal Medicine - [address] [phone] Lemuel Aquino MD [address] [place] [id number] Diarrhea Social History Tobacco Use Types Packs/Day Years [...] as of this encounter Progress Notes * Sonia Quinn RN - 12/16/2024 3:46 PM EST Spoke to pt-reports of coming back fr an [place] the country trip last mo[place]where she was bitten by spiders and had some clear discharge fr the bites on her stomach with GI s/x. She also reports of much dizziness/body weakness/headaches /sinus s/x and being easily winded. She is not able to tolerate p.o. fluid and food intake x few wks. Advised for pt to be eval in the ER-she is going and will callback office for f/up appt. * Henna Del Rio - 12/16/2024 3:17 PM EST Patient call requires triage: Symptoms patient is presenting: Pt was in [facility] where she got bit by a spider. She's unsure if thisis the reason but since October she has been feeling sick. She went to the hospital in November where she was told she had influenza A. Currently, pt is having headaches and is feeling dehydrated. Ptalso states that she is having diarrhea that looks spongy as well as bleeding through her sinus when she blows her nose. How long has patient had these symptoms?: since october For ALL patients calling to schedule any appointment (routine, sick visit, follow up, consult, etc.) in the outpatient setting please ask the following questions: Do you have fever of higher than 101, sore throat with difficulty swallowing or severe shortness ofbreath? no If YES to any of these above symptoms, send a message to triage and do not book. Red dot. If no, an audio or video visit should be booked. Have you had close contact with someone with Coronavirus in the last 14 days? no Have you traveled abroad? no Have you traveled recently to another state outside of [place], [place], [place], [place], [place], [place], [place]? no o If yes, did you quarantine for 14 days or have a negative covid test? no If yes to any of the above, patient is not to be scheduled in office until after 14 day quarantine or negative covid test. If pain or injury related was it due to an accident at work or from a motor vehicle accident? If yes, date of accident/Injury: No If yes, gather 3[employer] insurance information [employer] Party Information: not applicable PCP: Lemuel Aquino MD Payor: [employer] / Plan: [employer] MEDICARE ADVANTAGE / Product Type: *No Product type* / documented in this encounter Plan of Treatment Upcoming Encounters Date Type Department Care Team (Late st Contact Info) Description 12/26/2024 2:30 PM EDT Office Visit Internal Medicine - [address] [phone] Doretha Boucher, BEAU [address] [place] [address] 05/15/2025 11:45 AM EDT Office Visit Pulmonolgy - [place] [address] [phone] Debbie Guy MD [address] [address] 10/27/2025 10:30 AM EST Office Visit [facility] Hematology Oncology [address] [place] [phone] Cici Cardenas, DO [address] [place] [address] documented as of this encounter Visit Diagnoses Not on filedocumented in this encounter Care Teams Director Of Managed Services Relationship Specialty Start Date End Date Lemuel Aquino MD [address] [place] [id number] PCP - General Internal Medicine 06/29/15 documented as of this encounter
--- OUTSIDE RECORDS SUMMARY | 2024-12-23 10:20 | XMS_ITS | Encounter Summary ---
Author Organization [facility] [place] Address [address] [place] [address] Care Team Providers [employer] Name Role Phone Lemuel Aquino MD Primary Care Provider [phone] Reason for Referral * Imaging (Routine) - Pending Review Specialty Diagnoses / Procedures Referred By Brenna almanzar Referred To Contact Radiology Diagnoses Abnormal chest CT Procedures CT Chest wo Contrast Debbie Guy MD [address] [address] Phone: tel: fax: [facility] Referral ID Status Reason Start Date Expiration Date V isits Requested Visits Authorized [id number] Pending Review 12/22/2024 12/22/2025 1 1 Reason for Visit * Reason Comments Follow-up Sleep Apnea Asthma Encounter Details Date Type Department Care Team ([facility] st Contact Info) Description 12/22/2024 10:30 AM EDT [facility] [address] [phone] Debbie Guy MD [address] (Primary Dx); Moderate persistent asthma, unspecified whether complicated; MARILOU (obstructive sleep apnea) Social History Tobacco Use Types Packs/Day Years [...] Mass Index 38.71 12/22/2024 10:36 AM EDT documented in this encounter Ordered Prescriptions Prescription Sig Dispense Quantity Refills Last Filled Start Date End Date guaiFENesin (Mucinex) 600 mg 12 hr tabletIndications :Abnormal chest CT Take 2 tablets (1,200 mg total) by mouth 2 (two) times a day. Do not crush, chew, or split. 120 each 11 12/22/2024 albuterol 2.5 mg /3 mL (0.083 %) nebulizer solutionIndicatio ns:Moderate persistent asthma, unspecified whether complicated Take 3 mL (2.5 mg total) by nebulization every 6 (six) hours if needed for wheezing. 360 mL 11 12/22/2024 documented in this encounter Progress Notes * Debbie Guy MD - 12/22/2024 10:30 AM EDT ADULT PULMONARY Followup CHIEF COMPLAINT or REASON FOR CONSULTATION: Follow-up, Sleep Apnea, and Asthma Last seen 05/16/24, & 01/22/2024 Prior to that, seen by income tax preparer, Dr. Brannon Huerta, 10/23/2023. Prior to the last seen by income tax preparer Dr. Aguayo 08/26/2019. HISTORY OF PRESENT ILLNESS: Ashli Khan is a 69 y.o. old, ex-smoker @ 4 ppy, female h/o asthma, allergic rhinitis, allergy to Aleve, MARILOU, s/p gastric sleeve (02/2016), lung nodules, severe left pneumonia (treated outpatient), breast cancer (s/p B mastectomy), HTN, HLD, GERD with hiatal hernia, irritable bowel syndrome, PTSD, and anxiety with depression. Patient sleep study at [facility] [facility], 11/18/2007 RDI of 12. 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 FH: Mother, sisters x 2 w/ breast cancer. Brother and uncle colon cancer. ACT: 134. Renner Sleepiness Scale Sitting and reading: Moderate chance of dozing Watching TV: Slight chance of dozing Sitting, inactive in a public place (e.g. a theatre or a meeting): Would never doze As a passenger in a car for an hour without a break: Would never doze Lying down to rest in the afternoon when circumstances permit: Moderate chance of dozing Sitting and talking to someone: Moderate chance of dozing Sitting quietly after a lunch without alcohol: Would never doze In a car, while stopped for a few minutes in traffic: Would never doze Total score: 7 Compliance study (03/03/24 to 12/09/2024): Greater than 4-hour use 46%. AHI 3.8. Medium 7.0 cm H2O. 95th percentile 9.5 cm H2O. Maximum 10.6 cm H2O. With minimum leak. Since last seen: -During the holiday, patient was in a cruise and contracted gastroenteritis with respiratory symptoms, followed by a spider bite. Patient was seen by the cruise ship staff and was told nothing to worry about. -However, shortly after the cruise have landed, her symptom got worse. She was seen at [facility] in [place], and diagnosed with influenza A and discharge on Tamiflu. -Later that month, patient was diagnosed with pneumonia. Chest x-ray 11/12/2024 showed groundglass opacity. Patient was placed on antibiotic, name unknown. -Few days ago, 12/17/2024, patient was seen at [facility] ER with nausea, vomiting, diarrhea, and chest tightness. D-dimer was elevated. She underwent CTA of the chest which showed no pulmonary emboli. It also did not show endobronchial lesion but bilateral groundglass opacity more prominent on the left perihilar and left lower lobe. Patient was discharged on 2 antibiotics. Patient recovery was quite slow. -Again in early December of this year, patient contracted -Patient was seen at [facility] ER for dyspnea hospitalized: REVIEW OF SYSTEMS: Review of Systems Constitutional: Positive for malaise/fatigue. Negative for chills, decreased appetite, diaphoresis,fever and night sweats. HENT: Negative for congestion. Cardiovascular: Positive for dyspnea on exertion. Negative for chest pain, irregular heartbeat and leg swelling. Respiratory: Positive for cough. Negative for hemoptysis, shortness of breath, snoring, sputum production and wheezing. Cough is dry. Endocrine: Negative for cold intolerance and heat intolerance. Skin: Negative for rash. Gastrointestinal: Negative for abdominal pain, constipation, diarrhea and dysphagia. Genitourinary: Negative for dysuria. ALLERGIES: Allergies Allergen Reactions Naproxen Anaphylaxis anaphylaxis Azilsartan Med-Chlorthalidone Reaction not mentioned Naproxen Sodium Hives Other Reaction(s): code blue, hives, tongue swelling Nsaids (Non-Steroidal Anti-Inflammatory Drug) Other Reaction(s): GI Upset Sulfamethoxazole-Trimethoprim Rash/ blisters ACTIVE MEDICATIONS: Outpatient Medications Marked as Taking for the 12/22/24 encounter (Office Visit) with Debbie Guy MD Medication Sig Dispense Refill acetaminophen (TYLENOL 8 HOUR) 650 mg 8 hr tablet Take 650 mg by mouth every 8 (eight) hours as needed for pain. - Oral Patient not taking: Reported on 07/21/2024 albuterol HFA (PROAIR HFA ; PROVENTIL HFA ; VENTOLIN HFA) 90 mcg/actuation inhaler Inhale 2 puffs into the lungs every 4 (four) hours as needed for wheezing. amLODIPine (NORVASC) 2.5 mg tablet Take 1 tablet (2.5 mg total) by mouth 1 (one) time each day. 90 tablet 1 ammonium lactate (AMLACTIN) 12 % cream : Apply topically as needed for dry skin. budesonide-formoteroL (SYMBICORT) 160-4.5 mcg/actuation inhaler Inhale 2 inhalations into the lungs2 (two) times a day. cholecalciferol (VITAMIN D-3) 25 mcg (1,000 unit) tablet Take 1,000 Units by mouth daily. - Oral Patient not taking: Reported on 07/21/2024 cyanocobalamin, vitamin B-12, 1,000 mcg tablet, sublingual [address] 1 tablet under the tongue daily. - Sublingual Patient not taking: Reported on 07/21/2024 fluticasone furoate-vilanteroL (Breo Ellipta) 200-25 mcg/dose inhaler Take 1 puff by mouth 2 (two) times a day. fluticasone propionate (FLONASE) 50 mcg/actuation nasal spray 1 spray in each nostril daily 48 g 1 hydroCHLOROthiazide (HYDRODIURIL) 25 mg tablet Take 1 tablet (25 mg total) by mouth 1 (one) time each day. 90 tablet 1 lisinopril (PRINIVIL,ZESTRIL) 40 mg tablet Take 1 tablet (40 mg total) by mouth 1 (one) time each day. 90 tablet 1 meclizine (ANTIVERT) 25 mg tablet Take 1 tablet (25 mg total) by mouth 3 times daily as needed. montelukast (SINGULAIR) 10 mg tablet Take 1 tablet (10 mg total) by mouth at bedtime. multivitamin (MULTIPLE VITAMINS ORAL) Take 1 tablet by mouth 1 (one) time each day. Multiple Vitamins-Minerals (MULTI ADULT GUMMIES PO) omeprazole (PriLOSEC) [address] capsule Take 1 capsule (20 mg total) by mouth 1 (one) time each day.90 capsule 1 psyllium seed, with sugar, (FIBER ORAL) Take by mouth. traZODone (DESYREL) 50 mg tablet Take 1 tablet (50 mg total) by mouth at bedtime. PROVIDER ATTESTS THAT THE MEDICATION LIST WAS OBTAINED, REVIEWED AND UPDATED. PAST MEDICAL HISTORY: Patient Active Problem List Diagnosis Date Noted Gait instability 05/14/2023 Primary osteoarthritis of left knee 05/14/2023 Tendinitis involving left hip abductors 05/14/2023 Trochanteric bursitis of left hip 05/14/2023 Trochanteric bursitis of right hip 05/14/2023 Insomnia 03/10/2021 Mild episode of recurrent major depressive disorder ([facility]/HCC) 03/10/2021 Bilateral carpal tunnel syndrome 01/17/2021 Dyspnea 01/11/2021 Hiatal hernia 10/31/2018 Thoracic segment dysfunction 07/25/2017 Nonallopathic lesion of costovertebral region 06/25/2017 Thoracic back sprain 06/25/2017 IBS (irritable bowel syndrome) 2017 Pulmonary nodules 11/17/2016 Primary osteoarthritis of right knee 05/11/2016 Morbid obesity (CMS/HCC) 04/09/2015 PTSD (post-traumatic stress disorder) 02/10/2015 Anxiety 02/04/2015 Asthma 02/04/2015 Sleep apnea 02/04/2015 Chronic headaches 02/04/2015 Depression 02/04/2015 Gastroesophageal reflux disease without esophagitis 02/04/2015 HTN (hypertension) 02/04/2015 Mixed hyperlipidemia 02/04/2015 Vitamin D deficiency 02/04/2015 Past Surgical History: Procedure Laterality Date CARPAL TUNNEL RELEASE Right PROCEDURE: MN NEUROPLASTY &/TRANSPOS MEDIAN NRV CARPAL TUNNE; COMMENT: 2021 [facility] CHOLECYSTECTOMY PROCEDURE: HISTORICAL CHOLECYSTECTOMY COLONOSCOPY 10/05/2014 PROCEDURE: HISTORICAL COLONOSCOPY; COMMENT: williams; negative exam. HYSTERECTOMY PROCEDURE: HISTORICAL HYSTERECTOMY MASTECTOMY Bilateral 2008 PROCEDURE: HISTORICAL MASTECTOMY; COMMENT: left 2013 SHOULDER SURGERY Bilateral PROCEDURE: HISTORICAL SHOULDER SURGERY; COMMENT: arthroscopic left 02/2022, 08/2022 STOMACH SURGERY 02/2016 PROCEDURE: MN UNLISTED PROCEDURE STOMACH; COMMENT: Sleeve gastrectomy UPPER GASTROINTESTINAL ENDOSCOPY 09/09/2018 PROCEDURE: MN UPPER GI ENDOSCOPY PERFORMED; COMMENT: 2 cm axial hiatal hernia, evidence of gastric sleeve surgery, otherwise no mucosal lesions, not on PPI nor H2 sanjuana treatment. WISDOM TOOTH EXTRACTION N/A PROCEDURE: HISTORICAL WISDOM TEETH EXTRACTION; COMMENT: 7 teeth extracted, Past Surgical History: Procedure Laterality Date CARPAL TUNNEL RELEASE Right PROCEDURE: MN NEUROPLASTY &/TRANSPOS MEDIAN NRV CARPAL TUNNE; COMMENT: 2021 [facility] CHOLECYSTECTOMY PROCEDURE: HISTORICAL CHOLECYSTECTOMY COLONOSCOPY 10/05/2014 PROCEDURE: HISTORICAL COLONOSCOPY; COMMENT: williams; negative exam. HYSTERECTOMY PROCEDURE: HISTORICAL HYSTERECTOMY MASTECTOMY Bilateral 2007 PROCEDURE: HISTORICAL MASTECTOMY; COMMENT: left 2013 SHOULDER SURGERY Bilateral PROCEDURE: HISTORICAL SHOULDER SURGERY; COMMENT: arthroscopic left 02/2022, 08/2022 STOMACH SURGERY 02/2016 PROCEDURE: MN UNLISTED PROCEDURE STOMACH; COMMENT: Sleeve gastrectomy UPPER GASTROINTESTINAL ENDOSCOPY 09/09/2018 PROCEDURE: MN UPPER GI ENDOSCOPY PERFORMED; COMMENT: 2 cm axial hiatal hernia, evidence of gastric sleeve surgery, otherwise no mucosal lesions, not on PPI nor H2 sanjuana treatment. WISDOM TOOTH EXTRACTION N/A PROCEDURE: HISTORICAL WISDOM TEETH EXTRACTION; COMMENT: 7 teeth extracted, FAMILY HISTORY: Family History Problem Relation Name Age of Onset Coronary artery disease Father HTN Heart attack Mother Mental illness Daughter Mental illness Son on no meds Ulcerative colitis Son Colon cancer Brother x5 1 brother in [place] Other (Other: covid) Brother Colon cancer Brother 40's Colon cancer Uncle Colon cancer Other Crohn's disease Other SOCIAL HISTORY Social History Socioeconomic History Marital status: Spouse name: Not on file Number of children: Not on file Years of education: Not on file Highest education level: Not on file Occupational History Not on file Tobacco Use Smoking status: Former Current packs/day: 0.00 Average packs/day: 0.3 packs/day for 6.4 years (1.6 ttl pk-yrs) Types: Cigarettes Start date: 1974 Quit date: 10/15/1980 Years since quittin.2 Passive exposure: Past Smokeless tobacco: Never Substance and Sexual Activity Alcohol use: No Drug use: Yes Types: Marijuana/Cannabis Sexual activity: Not on file Other Topics Concern Not on file Social History Narrative Not on file IMMUNIZATION: Immunization History Administered Date(s) Administered COVID-19 (Pfizer/Comirnaty) 12yo and older 07/23/2023 Pfizer (ages 12 & older) Bivalent, COVID-19 08/16/2022 Pfizer SARS-CoV-2 COVID-19, mRNA, LNP-S, preservative free 11/27/2020, 01/04/2021, 01/25/2021, 08/11/2021 Tdap Tetanus diptheria acellular pertussis (Boostrix; Adacel) 7yo and older 11/12/2017 PHYSICAL EXAM: Visit Vitals BP 122/72 Pulse 80 Temp 35.8 ??C (96.5 ??F) (Temporal) Resp 18 Ht 1.651 m (65 ) Wt 106 kg (232 lb 9.6 oz) SpO2 97% BMI 38.71 kg/m?? OB Status Hysterectomy Smoking Status Former BSA 2.11 m?? Physical Exam Constitutional: General: She is not in acute distress. Appearance: Normal appearance. She is not ill-appearing. HENT: Head: Normocephalic and atraumatic. Nose: Nose normal. No congestion or rhinorrhea. Mouth/Throat: Mouth: Mucous membranes are moist. Pharynx: No oropharyngeal exudate or posterior oropharyngeal erythema. Eyes: Pupils: Pupils are equal, round, and reactive to light. Cardiovascular: Rate and Rhythm: Normal rate and regular rhythm. Pulses: Normal pulses. Heart sounds: No murmur heard. Pulmonary: Effort: Pulmonary effort is normal. No respiratory distress. Breath sounds: Normal breath sounds. No stridor. No wheezing, rhonchi or rales. Abdominal: General: Bowel sounds are normal. Palpations: Abdomen is soft. Tenderness: There is no abdominal tenderness. Musculoskeletal: Right lower leg: No edema. Left lower leg: No edema. Neurological: Mental Status: She is alert. Diagnostic: CURRENTS ICD-10 PULMONARY DIAGNOSIS 1. Abnormal chest CT 2. Moderate persistent asthma, unspecified whether complicated 3. MARILOU (obstructive sleep apnea) ASSESSMENT/PLAN: 1. Abnormal chest CT: Recent recurrent upper respiratory infection and pneumonia, requiring aggressive intervention. -Patient will need a follow-up CT chest, this has been ordered for 3 months. -Patient recommend to increase hydration and Mucinex use. 2. Moderate persistent asthma. -Pathophysiology of asthma was discussed. Treatment options of the various inhalers, along with techniques of use, and side effects were discussed. Maintenace of care of obstructive lung disease health such as various vaccinations, smoking cessation & avoidance of chemicals/fumes/inhalants were discussed. All questions were answered. -Continue current Breo 200 mcg, 1 puff daily. -Continue current albuterol MDI, 2 puff every 6 hours as needed. 3. MARILOU, poor compliance but would benefit from use. -Due to component of patient poor compliance is related to her being sick for protracted period time. -Pathophysiology, diagnostic, and various treatment options regarding sleep apnea (MARILOU/CSA/mixed apnea/OHS) were discussed. Risks and benefits of CPAP/Bipap/iVaps use along with risks of nontreatmentwere discussed. 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 Both the medical and financial implications of poor compliance with NIPPV were discussed. All issues regarding financial aspects of NIPPV to be addressed w/ DME vendor, and insurance company. All questions were answered. -Patient wished to continue with CPAP use and agreeable to take the financial responsibility of recent event, and will reach out to her insurance and DME vendor. -Will continue current AutoPap 6 to 16 cm water. 4. Lung nodules in ex-smoker. -As above continue to monitor. -Follow up with Lemuel Aquino MD for the other co-morbilities. RETURN TO THE NEXT VISIT: Based on physical exam, symptomatology, tests requested and baseline pulmonary evaluation/disease, I instructed the patient to come back to see me in 6 months for reevaluation after the test has beendone or earlier if the patient needed. Thanks Lemuel Aquino MD for allowing me to have the opportunity to assist in the care of this patient. This chart was generated by the [employer] system and [employer] speech recognition software and may contain inherent errors or omissions not intended by the user. Grammatical errors, random word insertions, deletions, pronoun errors and incomplete sentences are occasional consequences of this technologydue to software limitations. Not all errors are caught or corrected. If there are questions or concerns about the content of this note or information contained within the body of this dictation they should be addressed directly with the author for clarification. @ELECSIG@ documented in this encounter Plan of Treatment Upcoming Encounters Date Type Department Care Team (Late st Contact Info) Description 12/26/2024 2:30 PM EDT Office Visit [facility] [address] [place] [address] Doretha Boucher NP [address] [place] [address] 05/15/2025 11:45 AM EDT Office Visit Pulmonolgy - [place] [address] [place] [phone] Debbie Guy MD 175 [facility] [address] [place] [address] 10/27/2025 10:30 AM EST Office Visit [facility] Hematology Oncology [address] [place] [phone] Cici Cardenas DO [address] [place] [address] Scheduled Orders Name Type Priority Associated Diagnoses Orde r Schedule CT Chest wo Contrast Imaging Routine Abnormal chest CT Expected: 03/19/2025, Expires: 12/22/2025 documented as of this encounter Visit Diagnoses Diagnosis Abnormal chest CT- Primary Nonspecific (abnormal) findings on radiological and other examination of other intrathoracic organs Moderate persistent asthma, unspecified whether complicated MARILOU (obstructive sleep apnea) Obstructive sleep apnea (adult) (pediatric) documented in this encounter Care Teams [employer] Relationship Specialty Start Date End Date Lemuel Aquino MD [address] [place] [id number] PCP - General Internal Medicine 06/29/15 documented as of this encounter
--- OUTSIDE RECORDS SUMMARY | 2024-12-23 10:20 | XMS_ITS | Encounter Summary ---
Author Organization [facility] [place] [address] Care Team Providers Care Manager Employee Relations Name Role Phone Lemuel Aquino MD Primary Care Provider [phone] Reason for Visit * Reason Onset Date Comments PROVIDER CALLBACK 12/18/2024 Encounter Details Date Type Department Care Team (Late st Contact Info) Description 12/18/2024 Telephone Internal Medicine - [address] [phone] Lemuel Aquino MD [address] [place] [phone] PROVIDER CALLBACK Social History Tobacco Use Types Packs/Day Years [...] as of this encounter Progress Notes * Yolanda Gilbert MA - 12/18/2024 1:54 PM EST Spoke with pt, she already has appt 12/26 with abhilash, will keep that appt * Adenikekuldip Jayson - 12/18/2024 12:59 PM EST Who is calling -patient What is specific problem - Pt stated was seen @ [facility] ER visit- 12/18/2024 Sob, diarrhea, vomiting / DX pneumonia and she did blood work and it came back positive for blood cloth.Pt stated she was given a meds for 4 days called Azithromycin 250 mg and told to do a f/u with pcp dima. Pt has an appt for 12/26/24 and wants to knwo if she should wait then or be seen sooner.Pt is requesting a callback @ [phone] to discuss.Thx Is a callback needed -yes documented in this encounter Plan of Treatment Upcoming Encounters Date Type Department Care Team (Late st Contact Info) Description 12/26/2024 2:30 PM EDT Office Visit Internal Medicine - [facility] [address] [place] [address] Abhilash Boucher, BEAU [address] [place] [address] 05/15/2025 11:45 AM EDT Office Visit Pulmonolgy - [place] [address] [phone] Debbie Guy MD [address] [address] 10/27/2025 10:30 AM EST Office Visit [facility] Hematology Oncology [address] [place] [phone] Cici Cardenas DO [address] [place] [address] documented as of this encounter Visit Diagnoses Not on filedocumented in this encounter Care Teams Manager Employee Relations Relationship Specialty Start Date End Date Lemuel Aquino MD [address] [place] [phone] PCP - General Internal Medicine 06/29/15 documented as of this encounter
== END 2024-12-23 10:13 | disposition home or self-care (01) ==
LOC: HO.HSMS 09:15
PROVIDERS: PCP Internal Medicine; Visit Provider Nurse Practitioner Family
DX: R41.3 Other amnesia (principal); R41.89 Other symptoms and signs involving cognitive functions and awareness; G47.33 Obstructive sleep apnea (adult) (pediatric)
CPT/HCPCS: 99214

== ENCOUNTER → 2024-12-23 09:14 | Outpatient (BNVA) | payer MEDICAID, SELFPAY | PROVIDERS: PCP Internal Medicine; Visit Provider Nurse Practitioner Family | DX: R41.89 Other symptoms and signs involving cognitive functions and awareness (principal); R41.3 Other amnesia; G47.33 Obstructive sleep apnea (adult) (pediatric) | CPT/HCPCS: 99212 ==

== ENCOUNTER 2025-06-24 10:49 | Outpatient (AMB) | payer MEDICARE, SELFPAY ==
[2025-06-24 10:58] VITALS: BP 110/60; PULSE 68; O2SAT 98; BMI 36.3
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
--- OUTSIDE RECORDS SUMMARY | 2025-06-24 13:29 | XMS_ITS | Patient Health Record ---
[facility] Address [address] [place] [address] Care Team Providers Care Sanitizer Name Role Phone Jose Roberto ALEXANDRE, Darius Primary Care Provider Unavailab Adriano Astudillo Unavailable [phone] Allergies Allergen (clinical drug ingredient) Drug/Non Drug Allergy documented on EMR Reaction Allergy Type Onset Date Status ibuprofen Advil hives, coded blue in the hospital Drug Allergy Active Aleve hives, coded blue in the hospital Drug Allergy Active Motrin hives, coded blue in the hospital Drug Allergy Active sulfa blisters, eyes bleed Drug Allergy Active adhesive tape skin turns raw Drug Allergy Active Reason For Referral No Information Medications Medication SIG (Take, Route, Frequency, Duration) Notes Start Date End Date Status Mucinex 30/600 mg 1 tablet as needed Orally twice daily Active LORazepam 0.5 MG 1 tablet at bedtime as needed Orally Once a day Active Nortriptyline HCl 25 mg 1 capsule Orally once daily; Duration: 30 day(s) Active Simvastatin 20 MG 1 tablet in the evening Orally Once a day; Duration: 30 day(s) Active ProAir HFA 108 (90 Base) MCG/ACT 2 puffs as needed Inhalation every 4 hrs Active Vitamin D 1000 UNIT 1 tablet Orally twic e daily; Duration: 30 day(s) Active Vitamin B Complex as directed Orally Active Flovent HFA 44 mcg A ctive Zolpidem Tartrate 10 MG 1 tablet at bedt leticia as needed Orally Once a day Active Vitamin E 400 UNIT 1 capsule Orally Onc e a day; Duration: 30 day(s) Active Lisinopril 40 MG 1 tablet Orally Once a day; Duration: 30 day(s) Active hydroCHLOROthiazide 12.5 MG 1 capsule Or ally Once a day; Duration: 30 day(s) Active Problems Problem Type SNOMED Code ICD Code Onset Dates Problem Status W/U Status Risk Notes Problem Arthralgia (16299896) Arthralgia (719.40) Active confirmed Problem Disorder of joint of ankle and/or foot (259867877) Arthritis - Degenerative (719.97) Active confirmed Problem Neuralgia - Neuritis (729.2) Active confirmed Plan Of Treatment Pending Test Test Name Order Date X ray : Foot, left 3V 07/11/2012 X ray : Foot, right 3V 07/11/2012 Insurance Providers Payer Name Payer Address Payer Phone Subscriber Number Group Number Insured Name Patient Relationship to Insured Coverage Start Date Coverage End Date [facility] Others [address] [place] [address] [id number] 1 Francisco Khan Spouse - patient is the spouse of the insured Medical (General) History Medical History History ICD Code anxiety Arthritis asthma back, hip, knee pain broken bones chicken pox cancer depression gall bladder problems hypertension measles mumps sinus conditions cholesterol Surgical History Surgery Date(Month/Year) gall bladder 1985 or 1986 hysterectomy cancer surgery right breast 2006
--- OUTSIDE RECORDS SUMMARY | 2025-06-24 13:29 | XMS_ITS | Clinical Summary ---
Author Organization [facility] Address [address] [place] [address] Care Team Providers Care Client Experience Administrator Name Role Phone Lemuel Aquino Primary Care Provider [phone] Allergies Active Allergy Reactions Criticality Noted Date Comments Azilsartan Med-Chlorthalidone Dermatitis High 02/04/2015 Anaphylaxis Naproxen Anaphylaxis,Hives,Ot h er (see comments) High 02/04/2015 anaphylaxis Other Reaction(s): code blue, hives, tongue swelling naproxen sodium Nsaids (Non-Steroidal Anti-Inflammatory Drug) Gastritis 11/12/2024 Other Reaction(s): GI Upset Sulfamethoxazole-Trime thoprim Dermatitis,Rash,Other (see comments) High 03/24/2005 Rash/ blisters Other Reaction(s): open sores Other Reaction(s): open sores Rash/ blisters Bactrim Other Reaction(s): open sores Rash/ blisters Bactrim Medications albuterol 2.5 mg/3 mL (0.083%) nebulizer solution Inhale 1 vial via nebulizer every 6 hours as needed. 5 Active acetaminophen (TYLENOL) 650 mg 8 hr tablet Take 650 mg by mouth every 8 hours as needed. Active albuterol (PROAIR HFA,VENTOLIN HFA) 90 mcg inhaler Inhale 2 puffs by mouth every 6 hours as needed. Active amLODIPine (NORVASC) 2.5 mg tablet Take 2.5 mg by mouth once a day. 4 Active atorvastatin (LIPITOR) 40 mg tablet Take 40 mg by mouth once a day. 4 Active ammonium lactate (AMLACTIN) 12 % cream Apply topically to the affected area as needed. Active budesonide-formot Sharita (SYMBICORT) 160-4.5 mcg inhaler Inhale 2 puffs by mouth 2 times a day. Active calcium carbonate 400 mg calcium (1,000 mg) tablet,chewable Chew and swallow 1,000 mg by mouth daily as needed. Active cholecalciferol (VITAMIN D3) 1,000 unit tablet Take 2,000 Units by mouth once a day. Active escitalopram (LEXAPRO) 5 mg tablet Take 5 mg by mouth once a day. Active fluticasone propionate (FLONASE) 50 mcg/actuation nasal spray Administer 1 spray into each nostril once a day. 4 Active fluticasone furoate-vilantero L (BREO ELLIPTA) 200-25 mcg/dose blister with device INHALE 1 PUFF INTO THE LUNGS ONCE DAILY Active hydroCHLOROthiazi de (HYDRODIURIL) 25 mg tablet Take 25 mg by mouth once a day. 4 Active ketoconazole (NIZORAL) 2% shampoo APPLY TO EARS 2X/WEEK, LEAVE ON 5 MINUTES THEN WASH OFF Active lisinopriL (PRINIVIL,ZESTRIL ) 40 mg tablet Take 40 mg by mouth once a day. 4 Active meclizine (ANTIVERT) 25 mg tablet Take 25 mg by mouth as needed. Active therapeutic multivitamin (THERAGRAN) tablet Take 1 tablet by mouth daily. Active omeprazole (PriLOSEC) 20 mg capsule Take 1 capsule by mouth daily. 4 Active ondansetron (ZOFRAN) 4 mg tablet Take 4 mg by mouth. Active traZODone (DESYREL) 50 mg tablet Take 50 mg by mouth nightly. Active blood glucose diagnostic meter Act hari fluticasone propionate (FLOVENT DISKUS) 250 mcg inhaler Inhale 1 puff by mouth 2 times a day. Rinse mouth with water after use to reduce aftertaste and incidence of candidiasis. Do not swallow. Active Social History Tobacco Use Types Packs/Day Years Used Date Smoking Tobacco: Never Assessed Comments Unknown Sex and Gender Information Value Date Recorded Sex Assigned at Female 11/13/2024 12:38 PM EST Legal Sex Female 1:07 AM EDT Gender Identity Not on file Sexual Orientation Not on file Last Filed Vital Signs Vital Sign Reading Time Taken Comments Blood Pressure 134/68 02/25/2025 1:52 PM EDT Pulse 63 02/25/2025 1:52 PM EDT Temperature 36.7 C (98.1 F) 02/25/2025 1:52 PM EDT Respiratory Rate 16 02/25/2025 1:52 PM EDT Oxygen Saturation 98% 02/25/2025 1:52 PM EDT Inhaled Oxygen Concentration - - Weight 103 kg (227 lb) 02/25/2025 1:52 PM EDT Height 165.1 cm (5' 5 ) 02/25/2025 1:52 PM EDT Body Mass Index 37.77 02/25/2025 1:52 PM EDT Plan of Treatment Health Maintenance Due Date Last Done Comments Cologuard 1955 Colon Cancer Screening 1955 Colonoscopy 1955 FOBT / Fit Test 1955 Hepatitis C Screening 1955 Sigmoidoscopy 1955 Pneumococcal Vaccine: 50+ Years (1 of 2 - PCV) 1974 Mammogram 1995 Osteoporosis Screening 2005 Zoster Vaccines (1 of 2) 2005 RSV Vaccine (60+ years old and patients) (1 - Risk 60-74 years 1-dose series) 2015 Alcohol/Substance Use Screening 10/15/2024 Depression Screening and Follow-Up 10/15/2024 Health Care Proxy Review 10/15/2024 Social Drivers of Health Annual Screening 10/15/2024 COVID-19 Vaccine ( season) 2025 07/23/2023, 08/16/2022, 08/11/2021, Additional history exists Influenza Vaccine (#1) 2025 DTaP,Tdap,and Td Vaccines (2 - Td or Tdap) 11/12/2027 11/12/2017 Diabetes Screening 02/18/2028 02/17/2025, 0 01/09/2025, 01/09/2025 Hepatitis B Vaccines Aged Out No long er eligible based on patient's age to complete this topic Insurance [employer] [facility] Care Teams Client Experience Administrator Relationship Specialty Start Date End Date Lemuel Aquino [address] [place] [address] [place] [address] PCP - General Internal Medicine 11/13/24
--- OUTSIDE RECORDS SUMMARY | 2025-06-24 13:29 | XMS_ITS | Clinical Summary ---
Author Organization [facility] Address [address] [place] [id number] Care Team Providers Care Paper Cleaner Name Role Phone CintiatiaLemuel Primary Care Provider [phone] Social History Tobacco Use Types Packs/Day Years [...] Sigmoidoscopy - 5y 1955 HIV Screening 1955 Pneumococcal Vaccine, 50+ Years (1 of 1 - PCV) 2005 Zoster Vaccines (1 of 2) 2005 COVID-19 Vaccine (4 - 2024-2 6 season) 2025 08/16/2022, 08/11/2021, 01/25/2021 Influenza Vaccine (#1) 2025 DTaP,Tdap,and Td Vaccines [...] topic Insurance MEDICARE [employer] PPO Care Teams Paper Cleaner Relationship Specialty Start Date End Date Lemuel Aquino [address] [place] [id number] PCP - General Internal Medicine 07/16/24
--- OUTSIDE RECORDS SUMMARY | 2025-06-24 13:29 | XMS_ITS | Clinical Summary ---
Author Organization [facility] Address [address] [place] [address] Care Team Providers Care Broadband Engineer Name Role Phone Lemuel Aquino MD Primary Care Provider [phone] Allergies Active Allergy Reactions Criticality Noted Date [...] 65 07/21/2024 10:27 AM EDT Temperature 36.8 C (98.2 F) 07/21/2024 10:27 AM EDT Respiratory Rate - - Oxygen Saturation 96% [...] - PCV) 2020 COVID-19 Vaccine ( season) 2025 08/16/2022, 08/11/2021, 01/25/2021, Additional history exists Influenza Vaccine (#1) 2025 DTap / Tdap / Td (2 - Td or Tdap) 11/12/2027 11/12/2017 RSV Adult > 60+ Yrs or (1 - 1-dose 75+ series) 2030 Hepatitis B Vaccines Aged Out No long er eligible based on patient's age to complete this topic RSV Ped < 20 months Aged Out No longe r eligible based on patient's age to complete this topic Care Teams Broadband Engineer Relationship Specialty Start Date End Date Lemuel Aquino MD PCP - General Internal Medicine 08/11/20
== END 2025-06-24 11:55 | disposition home or self-care (01) ==
LOC: HO.HSMS 10:49
PROVIDERS: PCP Internal Medicine; Visit Provider Nurse Practitioner Family
DX: R41.3 Other amnesia (principal); R41.89 Other symptoms and signs involving cognitive functions and awareness; G47.33 Obstructive sleep apnea (adult) (pediatric)
CPT/HCPCS: 99213

== ENCOUNTER → 2025-06-24 10:49 | Outpatient (BNVA) | payer MEDICARE, SELFPAY | PROVIDERS: PCP Internal Medicine; Visit Provider Nurse Practitioner Family | DX: R41.3 Other amnesia (principal); R41.89 Other symptoms and signs involving cognitive functions and awareness; G47.33 Obstructive sleep apnea (adult) (pediatric) | CPT/HCPCS: 99212 ==